=== PATIENT | male | born 1965 | race Caucasian/White ===

== ENCOUNTER 2019-12-14 13:46 | Observation (INO) | payer BC, OTHER ==
[2019-12-14 15:02] LABS: Absolute Lymphocytes (CBC) 2.1 K/uL (0.7-4.9); Basophils % 0.8 % (0-1.3); Hematocrit 46.7 % (39.6-49.0); Lymphocytes % 26.9 % (15.3-44.8); MPV 9.2 fL (7.6-11.3); RBC Red Blood Cell Count 5.35 M/uL (4.33-5.43)
[2019-12-14 15:25] LABS: ALT/SGPT 23 U/L (12-78); AST/SGOT 10 U/L (15-37); Albumin 3.7 g/dL (3.4-5.0); Alkaline Phosphatase 107 U/L (45-117); BUN Blood Urea Nitrogen 18 mg/dL (7-18); Bicarbonate 27 mmol/L (21-32); Bilirubin Direct < 0.1 mg/dL (0-0.2); Bilirubin Total 0.4 mg/dL (0.2-1.0); Glucose Level 257 mg/dL (74-106); Magnesium 2.3 mg/dL (1.8-2.4); NT PRO-BNP 45 pg/mL (<125); Potassium 4.3 mmol/L (3.5-5.1); Protein, Total 8.1 g/dL (6.4-8.2); Sodium Level 137 mmol/L (136-145); Troponin (Emerg Dept Use Only) < 0.02 ng/mL (0.0-0.045)
[2019-12-14 15:28] LABS: Protime INR 0.97
[2019-12-14] MEDS ORDERED: NA CHLORIDE 0.9% 1,000 ML ONE ×2 (15:33→16:53)
--- NOTE | 2019-12-14 15:44 | RAD REPORT ---
EXAM DESCRIPTION: RAD - Chest Single View - 12/14/2019 3:19 pm CLINICAL HISTORY: SOB COMPARISON: None TECHNIQUE: AP portable chest image was obtained 12/14/2019 3:19 pm . FINDINGS: No focal mass or consolidation. Interstitial pattern is prominent with the baseline for th e patient unknown. Heart and vasculature are normal. No measurable pleural effusion and no pneumothor ax. No acute bony abnormality seen. No acute aortic findings suspected. IMPRESSION: No focal mass or consolidation. No significant failure or volume overload. Mild prominence of the interstitial pattern on baseline examination. A mild edema or infiltrate canno t be excluded.
--- NOTE | 2019-12-14 18:23 | ER ---
Nurse's Notes [facility] Name: Alexx Maher Age: 54 yrs Sex: Male : 1965 Arrival Date: 12/14/2019 Time: 13:49 Bed 23 Private MD: Diagnosis: Weakness;Orthostatic hypotension;Diarrhea, unspecified;Shortness of breath;Streptococcal tonsillitis Presentation: 12/13 14:03 Chief complaint: Patient states: SOB and diarrhea that began yesterday. Pt states aa5 "about 30 minutes ago I just started seeing stars and I fell into the tub". Pt denies head injury, denies LOC. Pt states "I landed on my right shoulder". Pt states "my friend was positive for COVID-19 and I've been around him". 14:03 Onset of symptoms was November 2019. aa5 14:03 Acuity: VISHAL 3 aa5 14:03 Method Of Arrival: Ambulatory aa5 14:03 Coronavirus screen: Patient reports a cough. Patient reports shortness of breath or aa5 difficulty breathing. Patient denies measured and/or subjective temperature greater than 100.4F prior to today's visit. Patient denies travel on a cruise ship or to a country the [facility] currently lists as an affected area. Patient reports contact with known and/or suspected case of COVID-19. Patient instructed to continue to wear a mask when interacting with others. Patient moved to private room, placed in contact and droplet isolation with eye protection until further assessment. Ebola Screen: Patient negative for fever greater than or equal to 101.5 degrees Fahrenheit, and additional compatible Ebola Virus Disease symptoms. Initial Sepsis Screen: Does the patient meet any 2 criteria? No. Patient's initial sepsis screen is negative. Does the patient have a suspected source of infection? No. Patient's initial sepsis screen is negative. Risk Assessment: Do you want to hurt yourself or someone else? Patient reports no desire to harm self or others. Triage Assessment: 14:03 General: Appears in no apparent distress. comfortable, Behavior is calm, cooperative. ls4 Pain: Complains of pain in anterior aspect of right shoulder and posterior aspect of right shoulder Pain currently is 5 out of 10 on a pain scale. Quality of pain is described as aching. 14:03 Respiratory: Reports shortness of breath on exertion cough that is occasional, allergy ls4 like Respiratory effort is even, unlabored, Respiratory pattern is regular, Breath sounds are clear bilaterally. Onset: The symptoms/episode began/occurred at an unknown time. the patient has mild shortness of breath. GI: No deficits noted. No signs and/or symptoms were reported involving the gastrointestinal system. : No deficits noted. No signs and/or symptoms were reported regarding the genitourinary system. Derm: No deficits noted. No signs and/or symptoms reported regarding the dermatologic system. Skin is pink, warm \\T\\ dry. Historical: - Allergies: 14:03 PENICILLINS; aa5 - PMHx: 14:03 Diabetes - NIDDM; aa5 - PSHx: 14:03 Head sx (from trauma as a child); Back (spider bite); aa5 - Immunization history:: Adult Immunizations up to date. - Social history:: Smoking status: unknown. Screenin:25 Abuse screen: Denies threats or abuse. Denies injuries from another. Nutritional ls4 screening: No deficits noted. Tuberculosis screening: No symptoms or risk factors identified. Fall Risk None identified. Assessment: 14:15 General: Appears in no apparent distress. comfortable, Behavior is calm, cooperative. ls4 Cardiovascular: Rhythm is regular. 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 Gait is steady, Speech is normal, Facial symmetry appears normal, Pupils are PERRLA. Respiratory: Airway is patent Respiratory effort is even, unlabored, Respiratory pattern is regular. Derm: Skin is pink, warm \\T\\ dry. 15:30 Reassessment: Patient appears in no apparent distress at this time. Patient and/or ls4 family updated on plan of care and expected duration. Pain level reassessed. Patient is alert, oriented x 3, equal unlabored respirations, skin warm/dry/pink. 16:30 Reassessment: Patient appears in no apparent distress at this time. Patient and/or ls4 family updated on plan of care and expected duration. Pain level reassessed. Patient is alert, oriented x 3, equal unlabored respirations, skin warm/dry/pink. 17:30 Reassessment: Patient appears in no apparent distress at this time. Patient and/or ls4 family updated on plan of care and expected duration. Pain level reassessed. Patient is alert, oriented x 3, equal unlabored respirations, skin warm/dry/pink. 18:30 Reassessment: Patient appears in no apparent distress at this time. Patient and/or ls4 family updated on plan of care and expected duration. Pain level reassessed. Patient is alert, oriented x 3, equal unlabored respirations, skin warm/dry/pink. 19:30 Reassessment: Patient appears in no apparent distress at this time. Patient and/or ls4 family updated on plan of care and expected duration. Pain level reassessed. Patient is alert, oriented x 3, equal unlabored respirations, skin warm/dry/pink. 20:30 Reassessment: Patient appears in no apparent distress at this time. Patient and/or ls4 family updated on plan of care and expected duration. Pain level reassessed. Patient is alert, oriented x 3, equal unlabored respirations, skin warm/dry/pink. 21:30 Reassessment: Patient appears in no apparent distress at this time. Patient and/or ls4 family updated on plan of care and expected duration. Pain level reassessed. Patient is alert, oriented x 3, equal unlabored respirations, skin warm/dry/pink. 22:30 Reassessment: Patient appears in no apparent distress at this time. Patient and/or ls4 family updated on plan of care and expected duration. Pain level reassessed. Patient is alert, oriented x 3, equal unlabored respirations, skin warm/dry/pink. Vital Signs: 14:03 BP 135 / 84; Pulse 87; Resp 18 S; Temp 99.1(O); Pulse Ox 100% on R/A; Weight 107.95 kg aa5 (R); Height 6 ft. 2 in. (187.96 cm) (R); Pain 7/10; 16:35 BP 135 / 91 Supine; Pulse 82; aa5 16:37 BP 118 / 82 Sitting; Pulse 87; aa5 16:39 BP 96 / 64 Standing; Pulse 91; aa5 18:52 BP 158 / 99 Supine; Pulse 86; Resp 16; Pulse Ox 100% on R/A; ls4 18:55 BP 106 / 58; Pulse 116; ls4 14:03 Body Mass Index 30.56 (107.95 kg, 187.96 cm) aa5 16:39 Pt c/o dizziness while standing, Dr. Ramey notified of orthostatics. aa5 ED Course: 13:49 Patient arrived in ED. ag5 14:03 Arm band placed on. aa5 14:14 Triage completed. aa5 14:16 Quique Ramey MD is Attending Physician. kdr 14:25 Saadia Moody, RN is Primary Nurse. ls4 14:25 No provider procedures requiring assistance completed. EKG done, by ED staff, reviewed ls4 by Quique Ramey MD. Patient maintains SpO2 saturation greater than 95% on room air. 15:19 XRAY Chest (1 view) In Process Unspecified. EDMS 15:30 Inserted saline lock: 18 gauge in right forearm, using aseptic technique. Inserted by jeremy Zee RN. 18:21 Johny Avila MD is Hospitalizing Provider. kdr 22:54 intact. ls4 Administered Medications: 15:30 Drug: NS 0.9% 1000 ml Route: IV; Rate: 1 bolus; Site: right forearm; aa5 16:30 Follow up: IV Status: Completed infusion; IV Intake: 1000ml ls4 16:35 Follow up: IV Status: Completed infusion; IV Intake: 1000ml aa5 16:45 Drug: NS 0.9% 1000 ml Route: IV; Rate: 1 bolus; Site: right forearm; aa5 17:30 Follow up: IV Status: Completed infusion; IV Intake: 1000ml ls4 Intake: 16:30 IV: 1000ml; Total: 1000ml. ls4 17:30 IV: 1000ml; Total: 2000ml. ls4 Outcome: 18:22 Decision to Hospitalize by Provider. kdr 22:54 Patient left the ED. sg 22:54 Admitted to ICU accompanied by nurse, via wheelchair, on monitor, with chart, Report ls4 called to Casandra GARIBAY 22:54 Condition: stable 22:54 Instructed on the need for admit. Signatures: Dispatcher [employer] EDMS Zac Ibrahim RN RN sg Rittger, Kevin, MD MD kdr Calderon, Audri, RN RN aa5 Stewart, Lisa, LANI RN mark4 Ion Sigala 5 Corrections: (The following items were deleted from the chart) 16:46 15:30 NS 0.9% 1000 ml IV at 1 bolus in right antecubital aa5 aa5 17:06 15:15 Inserted saline lock: 18 gauge in right forearm, using aseptic technique. aa5 aa5 21:38 21:32 Respiratory: Airway ls4 ls4 12/14 00:22 12/13 16:35 IV Status: Completed infusion; IV Intake: 1000ml aa5 ls4
--- NOTE | 2019-12-14 18:23 | EDPHYS ---
Physician Documentation [facility] Name: Alexx Maher Age: 54 yrs Sex: Male : 1965 Arrival Date: 12/14/2019 Time: 13:49 Bed 23 Private MD: ED Physician Quique Ramey HPI: 12/13 16:49 This 54 yrs old Male presents to ER via Ambulatory with complaints of kdr Shortness Of Breath, Diarrhea, Dizziness. 16:49 The patient has shortness of breath at rest, with light activity. Onset: The kdr symptoms/episode began/occurred gradually, yesterday. Duration: The symptoms are continuous, and are steadily getting worse. The patient's shortness of breath is aggravated by coughing, exertion, light activity. Associated signs and symptoms: Pertinent positives: diaphoresis, dizziness, Diarrhea, Pertinent negatives: fever, hemoptysis, nausea, numbness in extremities, visual changes, vomiting. Severity of symptoms: At their worst the symptoms were mild moderate just prior to arrival, incapacitating in the emergency department the symptoms have improved markedly. The patient has not experienced similar symptoms in the past. The patient has not recently seen a physician. The patient has had recent close exposure to COVID and since yesterday, has had diarrhea. Today, he was standing up in the bathroom and became lightheaded and fell into the tub on his right shoulder. HE did not pass out and was able to get out of the tub and to the ED. States that he just doesn't feel right. Historical: - Allergies: 14:03 PENICILLINS; aa5 - PMHx: 14:03 Diabetes - NIDDM; aa5 - PSHx: 14:03 Head sx (from trauma as a child); Back (spider bite); aa5 - Immunization history:: Adult Immunizations up to date. - Social history:: Smoking status: unknown. ROS: 17:29 Constitutional: Negative for fever, chills, and weight loss, Eyes: Negative for injury, kdr pain, redness, and discharge, ENT: Negative for injury, pain, and discharge, Neck: Negative for injury, pain, and swelling, Cardiovascular: Negative for chest pain, palpitations, and edema, Back: Negative for injury and pain, : Negative for injury, bleeding, discharge, and swelling, MS/Extremity: Negative for injury and deformity, Skin: Negative for injury, rash, and discoloration, Psych: Negative for depression, anxiety, suicide ideation, homicidal ideation, and hallucinations, Allergy/Immunology: Negative for hives, rash, and allergies, Endocrine: Negative for neck swelling, polydipsia, polyuria, polyphagia, and marked weight changes, Hematologic/Lymphatic: Negative for swollen nodes, abnormal bleeding, and unusual bruising. 17:29 Respiratory: Positive for dyspnea on exertion, shortness of breath, at rest. Negative for hemoptysis, orthopnea, pleurisy. 17:29 Abdomen/GI: Positive for nausea, diarrhea, abdominal cramps, Negative for constipation, abdominal distension, black/tarry stool, rectal pain, rectal bleeding, bowel incontinence. Exam: 17:29 Constitutional: This is a well developed, well nourished patient who is awake, alert, kdr and in no acute distress. Head/Face: Normocephalic, atraumatic. Eyes: Pupils equal round and reactive to light, extra-ocular motions intact. Lids and lashes normal. Conjunctiva and sclera are non-icteric and not injected. Cornea within normal limits. Periorbital areas with no swelling, redness, or edema. Neck: Trachea midline, no thyromegaly or masses palpated, and no cervical lymphadenopathy. Supple, full range of motion without nuchal rigidity, or vertebral point tenderness. No Meningismus. Chest/axilla: Normal chest wall appearance and motion. Nontender with no deformity. No lesions are appreciated. Cardiovascular: Regular rate and rhythm with a normal S1 and S2. No gallops, murmurs, or rubs. Normal PMI, no JVD. No pulse deficits. Respiratory: Lungs have equal breath sounds bilaterally, clear to auscultation and percussion. No rales, rhonchi or wheezes noted. No increased work of breathing, no retractions or nasal flaring. Abdomen/GI: Soft, non-tender, with normal bowel sounds. No distension or tympany. No guarding or rebound. No evidence of tenderness throughout. Back: No spinal tenderness. No costovertebral tenderness. Full range of motion. Skin: Warm, dry with normal turgor. Normal color with no rashes, no lesions, and no evidence of cellulitis. MS/ Extremity: Pulses equal, no cyanosis. Neurovascular intact. Full, normal range of motion. Neuro: Awake and alert, GCS 15, oriented to person, place, time, and situation. Cranial nerves II-XII grossly intact. Motor strength 5/5 in all extremities. Sensory grossly intact. Cerebellar exam normal. Normal gait. Psych: Awake, alert, with orientation to person, place and time. Behavior, mood, and affect are within normal limits. 17:29 Abdomen/GI: Inspection: obese 17:56 ECG was reviewed by the Attending Physician. kdr Vital Signs: 14:03 BP 135 / 84; Pulse 87; Resp 18 S; Temp 99.1(O); Pulse Ox 100% on R/A; Weight 107.95 kg aa5 (R); Height 6 ft. 2 in. (187.96 cm) (R); Pain 7/10; 16:35 BP 135 / 91 Supine; Pulse 82; aa5 16:37 BP 118 / 82 Sitting; Pulse 87; aa5 16:39 BP 96 / 64 Standing; Pulse 91; aa5 18:52 BP 158 / 99 Supine; Pulse 86; Resp 16; Pulse Ox 100% on R/A; ls4 18:55 BP 106 / 58; Pulse 116; ls4 14:03 Body Mass Index 30.56 (107.95 kg, 187.96 cm) aa5 16:39 Pt c/o dizziness while standing, Dr. Ramey notified of orthostatics. aa5 MDM: 17:29 Data reviewed: vital signs, nurses notes, lab test result(s), radiologic studies. kdr Counseling: I had a detailed discussion with the patient and/or guardian regarding: the historical points, exam findings, and any diagnostic results supporting the discharge/admit diagnosis, lab results, radiology results. 18:22 Patient medically screened. kdr 12/13 14:29 Order name: Basic Metabolic Panel; Complete Time: 16:26 ls4 12/13 14:29 Order name: CBC with Diff; Complete Time: 16:26 ls4 12/13 14:29 Order name: LFT's; Complete Time: 16:26 ls4 12/13 14:29 Order name: Magnesium; Complete Time: 16:26 ls4 12/13 14:29 Order name: NT PRO-BNP; Complete Time: 16:26 ls4 12/13 14:29 Order name: PT-INR; Complete Time: 16:26 ls4 12/13 14:29 Order name: Troponin (emerg Dept Use Only); Complete Time: 16:26 [facility] 12/13 15:19 Order name: COVID-19 [facility] 12/13 15:19 Order name: Flu; Complete Time: 18:23 [facility] 12/13 15:19 Order name: Strep; Complete Time: 18:23 [facility] 12/13 19:05 Order name: Lactate [facility] 12/13 19:05 Order name: CKMB Creatine Kinase MB [facility] 12/13 19:05 Order name: CKMB Creatine Kinase MB [facility] 12/13 19:05 Order name: CKMB Creatine Kinase MB [facility] 12/13 14:29 Order name: XRAY Chest (1 view); Complete Time: 16:26 [facility] 12/13 19:05 Order name: CKMB Creatine Kinase MB [facility] 12/13 19:05 Order name: Comprehensive Metabolic Panel [facility] 12/13 19:05 Order name: Comprehensive Metabolic Panel [facility] 12/13 19:05 Order name: Lipid Profile [facility] 12/13 19:05 Order name: Lipid Profile [facility] 12/13 19:05 Order name: Troponin I [facility] 12/13 19:05 Order name: Troponin I [facility] 12/13 19:05 Order name: Troponin I [facility] 12/13 19:05 Order name: Troponin I [facility] 12/13 19:07 Order name: C-Reactive Protein [facility] 12/13 19:07 Order name: D-Dimer [facility] 12/13 19:07 Order name: Lactate [facility] 12/13 19:07 Order name: NT PRO-BNP [facility] 12/13 14:29 Order name: EKG; Complete Time: 14:29 [facility] 12/13 14:29 Order name: Cardiac monitoring; Complete Time: 00:23 [facility] 12/13 14:29 Order name: EKG - Nurse/Tech; Complete Time: 00:23 [facility] 12/13 14:29 Order name: IV Saline Lock; Complete Time: 00:23 [facility] 12/13 14:29 Order name: Labs collected and sent; Complete Time: 00:23 [facility] 12/13 14:29 Order name: O2 Per Protocol; Complete Time: 00:23 [facility] 12/13 14:29 Order name: O2 Sat Monitoring; Complete Time: 00:23 [facility] 12/13 15:19 Order name: Droplet/Contact Precautions; Complete Time: 17:29 kdr 12/13 15:19 Order name: Orthostatic Blood Pressure: Post Fluid bolus; Complete Time: 16:40 kdr 12/13 19:06 Order name: Consistent Carb (ADA) [facility] EC:56 Rate is 80 beats/min. Rhythm is regular, Normal Sinus Rhythm with No ectopy. QRS Crivitz kdr is Normal. MS interval is normal. QRS interval is normal. QT interval is normal. No Q waves. Clinical impression: Normal ECG. Administered Medications: 15:30 Drug: NS 0.9% 1000 ml Route: IV; Rate: 1 bolus; Site: right forearm; aa5 16:30 Follow up: IV Status: Completed infusion; IV Intake: 1000ml ls4 16:35 Follow up: IV Status: Completed infusion; IV Intake: 1000ml aa5 16:45 Drug: NS 0.9% 1000 ml Route: IV; Rate: 1 bolus; Site: right forearm; aa5 17:30 Follow up: IV Status: Completed infusion; IV Intake: 1000ml ls4 Disposition: 12/14/19 18:22 Hospitalization ordered by Johny Avila for Observation. Preliminary diagnosis are Weakness, Orthostatic hypotension, Diarrhea, unspecified, Shortness of breath, Streptococcal tonsillitis. - Bed requested for Telemetry/MedSurg (observation). - Status is Observation. sg - Condition is Stable. - Problem is new. - Symptoms have improved. Signatures: Dispatcher [employer] EDIN Zac Ibrahim RN RN sg Rittger, Kevin, MD MD [facility] Valerie Titus RN RN aa5 Neetu Lundberg RN RN Saadia Moody RN RN ls4 Corrections: (The following items were deleted from the chart) 18:22 18:22 Hospitalization Ordered by Johny Avila MD for Observation. Preliminary kdr diagnosis is Weakness; Orthostatic hypotension; Diarrhea, unspecified. Bed requested for Telemetry/MedSurg (observation). Status is Observation. Condition is Stable. Problem is new. Symptoms have improved. kdr 18:25 18:22 12/14/2019 18:22 Hospitalization Ordered by Johny Avila MD for Observation. kdr Preliminary diagnosis is Weakness; Orthostatic hypotension; Diarrhea, unspecified; Shortness of breath. Bed requested for Telemetry/MedSurg (observation). Status is Observation. Condition is Stable. Problem is new. Symptoms have improved. kdr 19:55 18:25 12/14/2019 18:22 Hospitalization Ordered by Johny Avila MD for Observation. cg Preliminary diagnosis is Weakness; Orthostatic hypotension; Diarrhea, unspecified; Shortness of breath; Streptococcal tonsillitis. Bed requested for Telemetry/MedSurg (observation). Status is Observation. Condition is Stable. Problem is new. Symptoms have improved. kdr 22:54 19:55 12/14/2019 18:22 Hospitalization Ordered by Johny Avila MD for Observation. sg Preliminary diagnosis is Weakness; Orthostatic hypotension; Diarrhea, unspecified; Shortness of breath; Streptococcal tonsillitis. Bed requested for Telemetry/MedSurg (observation). Status is Observation. Condition is Stable. Problem is new. Symptoms have improved. cg
[2019-12-14] MEDS ORDERED: ACETAMINOPHEN 500 MG TAB PO PRN (19:02)
[2019-12-14] MEDS ORDERED: ONDANSETRON 4 MG/2 ML VIAL IV PRN (19:02)
[2019-12-14] MEDS ORDERED: HYDRALAZINE HCL 20 MG/ML VIAL IV PRN (19:05)
--- NOTE | 2019-12-14 19:06 | P.HP ---
Certification for Inpatient Patient admitted to: Observation With expected LOS: <2 Midnights Practitioner: I am a practitioner with admitting privileges, knowledge of patient current condition, hospital course, and medical plan of care. Services: Services provided to patient in accordance with Admission requirements found in Title 42 Section 412.3 of the Code of Federal Regulations Patient History Date of Service: 12/15/19 Reason for admission: Dizziness History of Present Illness: 54 yrs old Male with past medical history of hypertension , DM , hyperlipidemia presents with complaints of Shortness Of Breath, Diarrhea, Dizziness. The patient has shortness of breath at rest, with light activity . The patient's shortness of breath is aggravated by coughing, exertion, light activity. The patient has had recent close exposure to COVID and since yesterday, has had diarrhea. Today, he was standing up in the bathroom and became lightheaded and fell into the tub on his right shoulder. He denies any Loss of consciousness He was assessed in the ER and was found to have orthostatics hypotension and was admitted for further management for IV hydration and further workup Allergies Penicillins Adverse Reaction (Verified 12/15/19 00:08) Anaphylaxis Home Medications: Azithromycin Tab [Zithromax*] 250 mg PO DAILY #4 tab 12/15/19 Fludrocortisone [Florinef *] 0.1 mg PO DAILY #10 tab 12/15/19 - Past Medical/Surgical History Past Medical History: Reviewed- Non-Contributory -: DM Past Surgical History: Reviewed- Non-Contributory - Family History Family History: Reviewed- Non-Contributory - Family History Father Notes: brain aneurysm - Social History Smoking Status: Never smoker Review of Systems 10-point ROS is otherwise unremarkable Physical Examination - Vital Signs Temperature: 99.1 F Blood Pressure: 136/84 Pulse: 87 Respirations: 18 - Physical Exam General: Alert, In no apparent distress, Obese HEENT: Atraumatic, Normocephalic Neck: Supple Respiratory: Clear to auscultation bilaterally Cardiovascular: Normal pulses, Regular rate/rhythm Capillary refill: <2 Seconds Gastrointestinal: Soft and benign, W/out hepatosplenomegaly Musculoskeletal: No clubbing, No swelling Integumentary: No rashes, No tenderness/swelling Neurological: Normal speech, Normal strength at 5/5 x4 extr Lymphatics: No axilla or inguinal lymphadenopathy - Studies Laboratory Data (last 24 hrs) 12/14/19 14:51: PT 11.5, INR 0.97 12/14/19 14:51: WBC 7.6, Hgb 15.8, Hct 46.7, Plt Count 252 12/14/19 14:51: Sodium 137, Potassium 4.3, BUN 18, Creatinine 1.18, Glucose 257 H, Magnesium 2.3, Total Bilirubin 0.4, AST 10 L, ALT 23, Alkaline Phosphatase 107 Microbiology Data (last 24 hrs): 12/14/19 15:50 Nasopharnyx Coronavirus COVID-19 PCR - Final 12/14/19 15:58 Throat Group A Streptococcus Rapid Screen - Final 12/14/19 15:58 Nasopharnyx Influenza Type A Antigen Screen - Final 12/14/19 15:58 Nasopharnyx Influenza Type B Antigen Screen - Final Assessment and Plan - Problems (Diagnosis) (1) Strep pharyngitis Current Visit: Yes Status: Acute (2) Orthostatic dizziness Current Visit: Yes Status: Acute - Plan Strep A pharyngitis Orthostatic hypotension Diabetes PTSD Anxiety To rule out covid 19 Plan Monitor closely under telemetry Aggressive hydration Monitor orthostatics signs Will get a covid 19 test Insulin sliding scale Continue home medications and titrate as needed GI/DVT prophylaxis - Advance Directives Does patient have a Living Will: No Does patient have a Durable POA for Healthcare: No Time Spent Managing Pts Care (In Minutes): 42
[2019-12-14] MEDS: NA CHLORIDE 0.9% 1,000 ML IV SCH (20:00)
[2019-12-14] MEDS: INSULIN -REGULAR HUMAN 50 UNIT/0.5 ML ML SQ SCH (21:00)
[2019-12-14 21:51] LABS: C-Reactive Protein 6.47 mg/L (<3.00); CKMB Creatine Kinase MB 2.1 ng/mL (0.3-3.6); NT PRO-BNP 38 pg/mL (<125); Troponin I < 0.02 ng/mL (0.0-0.045)
[2019-12-15] MEDS: NA CHLORIDE 0.9% 1,000 ML IV SCH ×4 (00:10→16:00)
[2019-12-15 03:56] LABS: Absolute Lymphocytes (CBC) 3.5 K/uL (0.7-4.9); Basophils % 0.8 % (0-1.3); Hematocrit 42.3 % (39.6-49.0); Lymphocytes % 36.4 % (15.3-44.8); MPV 8.9 fL (7.6-11.3); RBC Red Blood Cell Count 4.85 M/uL (4.33-5.43)
[2019-12-15 04:06] LABS: Bilirubin Total 0.4 mg/dL (0.2-1.0); CKMB Creatine Kinase MB 1.9 ng/mL (0.3-3.6); Troponin I < 0.02 ng/mL (0.0-0.045)
[2019-12-15 04:07] LABS: Albumin 3.1 g/dL (3.4-5.0); Protein, Total 6.7 g/dL (6.4-8.2)
[2019-12-15 04:31] VITALS: BMI 30.5
[2019-12-15 05:16] LABS: Urine Appearance CLEAR; Urine Bilirubin NEGATIVE (NEG); Urine Blood NEGATIVE (NEG); Urine Color YELLOW; Urine Glucose 3+ (NEG); Urine Protein NEGATIVE (NEG); Urine Specific Gravity >=1.030 (1.005-1.030); Urine pH 6.5 (5.0-7.0)
[2019-12-15 05:28] LABS: Urine Microscopic Reflex NO UMIC
--- NOTE | 2019-12-15 07:33 | EKG ---
Test Date: 2019-12-14 Test Time: 14:20:45 [facility] Chaplain: RICCO MEASUREMENT RESULTS: Intervals: Rate: 80 IL: 172 QRSD: 78 QT: 344 QTc: 396 [place]: P: 41 [place]: 172 QRS: 4 T: 31 INTERPRETIVE STATEMENTS: Normal sinus rhythm Normal ECG Compared to ECG 03/16/2006 22:47:57 T-wave abnormality no longer present Electronically Signed On 12-15-19 07:32:24 CDT by Chava Marrufo
[2019-12-15] MEDS: INSULIN -REGULAR HUMAN 50 UNIT/0.5 ML ML SQ SCH ×3 (07:46→17:12)
[2019-12-15] MEDS ORDERED: ENOXAPARIN 40 MG/0.4 ML SQ SCH (09:00)
--- NOTE | 2019-12-15 10:52 | P.DS ---
Admission Date: 12/14/19 Discharge Date: 12/15/19 Disposition: ROUTINE DISCHARGE Discharge Condition: GOOD Brief History of Present Illness: 54 yrs old Male with past medical history of hypertension , DM , hyperlipidemia presents with complaints of Shortness Of Breath, Diarrhea, Dizziness. The patient has shortness of breath at rest, with light activity . The patient's shortness of breath is aggravated by coughing, exertion, light activity. The patient has had recent close exposure to COVID and since yesterday, has had diarrhea. Today, he was standing up in the bathroom and became lightheaded and fell into the tub on his right shoulder. He denies any Loss of consciousness He was assessed in the ER and was found to have orthostatics hypotension and was admitted for further management for IV hydration and further workup Hospital Course: Strep A pharyngitis Orthostatic hypotension Diabetes PTSD Anxiety To rule out covid 19 Patient was admitted and was monitored closely. Monitored under telemetry. Started on aggressive hydration and monitor orthostatics vital signs patient had a covid 19 test and was negative. Rapid strep came back positive and was started on azithromycin. Patient also was continues to have dizziness and was started on fludrocortisone. he underwent a extensive workup with CT of the head and carotid Doppler along with an echocardiogram. Patient is clinically better and is being discharged home today in a stable condition with advice to follow up with PCP in 1 week and also with Cardiology in 1-2 weeks Vital Signs/Physical Exam: Temp Pulse Resp BP Pulse Ox 97.6 F 75 12 126/80 95 12/15/19 08:00 12/15/19 08:00 12/15/19 08:00 12/15/19 08:00 12/15/19 08:00 General: Alert, In no apparent distress HEENT: Atraumatic, Normocephalic Neck: Supple Respiratory: Clear to auscultation bilaterally, Normal air movement Cardiovascular: Normal pulses, Regular rate/rhythm Capillary refill: <2 Seconds Gastrointestinal: Soft and benign, W/out hepatosplenomegaly Musculoskeletal: No clubbing Integumentary: No rashes Neurological: Normal speech, Normal strength at 5/5 x4 extr Laboratory Data at Discharge: WBC 9.7 K/uL (4.3-10.9) D 12/15/19 03:36 Hgb 14.5 g/dL (13.6-17.9) 12/15/19 03:36 Hct 42.3 % (39.6-49.0) 12/15/19 03:36 Plt Count 216 K/uL (152-406) 12/15/19 03:36 PT 11.5 SECONDS (9.5-12.5) 12/14/19 14:51 INR 0.97 12/14/19 14:51 Sodium 139 mmol/L (136-145) 12/15/19 03:36 Potassium 4.0 mmol/L (3.5-5.1) 12/15/19 03:36 BUN 17 mg/dL (7-18) 12/15/19 03:36 Creatinine 1.11 mg/dL (0.55-1.3) 12/15/19 03:36 Glucose 243 mg/dL (74-106) H 12/15/19 03:36 Magnesium 2.3 mg/dL (1.8-2.4) 12/14/19 14:51 Total Bilirubin 0.4 mg/dL (0.2-1.0) 12/15/19 03:36 AST 16 U/L (15-37) 12/15/19 03:36 ALT 22 U/L (12-78) 12/15/19 03:36 Alkaline Phosphatase 88 U/L (45-117) 12/15/19 03:36 Troponin I < 0.02 ng/mL (0.0-0.045) 12/15/19 03:36 Triglycerides 359 mg/dL (<150) H 12/15/19 03:36 Cholesterol 168 mg/dL (<200) 12/15/19 03:36 HDL Cholesterol 42 mg/dL (40-60) 12/15/19 03:36 Cholesterol/HDL Ratio 4.00 12/15/19 03:36 Home Medications: Azithromycin Tab [Zithromax*] 250 mg PO DAILY #4 tab 12/15/19 Fludrocortisone [Florinef *] 0.1 mg PO DAILY #10 tab 12/15/19 New Medications: Fludrocortisone [Florinef *] 0.1 mg PO DAILY #10 tab Azithromycin Tab [Zithromax*] 250 mg PO DAILY #4 tab Diet: ADA Activity: Ad alex Followup: Chava Marrufo MD [ACTIVE - CAN ADMIT] - 1-2 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
[2019-12-15] MEDS ORDERED: FLUDROCORTISONE 0.1 MG TAB PO SCH (11:32)
[2019-12-15 11:52] LABS: CKMB Creatine Kinase MB 1.6 ng/mL (0.3-3.6); HDL Cholesterol 42 mg/dL (40-60); Troponin I < 0.02 ng/mL (0.0-0.045)
[2019-12-15 12:09] LABS: LDL, Direct 92 mg/dL (100-129)
[2019-12-15] MEDS ORDERED: AZITHROMYCIN 250 MG TAB PO ONE (13:00)
--- NOTE | 2019-12-15 13:20 | RAD REPORT ---
EXAM DESCRIPTION: CT - Head Brain Wo Cont - 12/15/2019 1:08 pm CLINICAL HISTORY: Dizziness Headache, drowsiness COMPARISON: No comparisons TECHNIQUE: All CT scans are performed using dose optimization technique as appropriate and may inclu de automated exposure control or mA/KV adjustment according to patient size. FINDINGS: No intracranial hemorrhage, hydrocephalus or extra-axial fluid collection.Mild brain atrop hy is seen.No areas of brain edema or evidence of midline shift. Mild mucoperiosteal thickening is seen affecting the paranasal sinuses greatest in the anterior ethmo id air cells. Mastoid air cells are clear. The calvarium is intact. IMPRESSION: No acute intracranial abnormality.
--- NOTE | 2019-12-15 13:58 | RAD REPORT ---
EXAM DESCRIPTION: - CP - 12/15/2019 1:22 pm CLINICAL HISTORY: dizziness Headache, drowsiness COMPARISON: <Comparisons> TECHNIQUE: Real-time sonographic evaluation of both carotid systems was performed. Doppler interroga tion was performed with waveform tracing bilaterally. FINDINGS: Normal high resistance waveforms are noted in both external carotid arteries. The common c arotid arteries and internal carotid arteries show normal low resistance waveforms. No significant plaque formation is seen. Peak systolic and end diastolic velocity values and the ICA/ CCA ratios are in the non-hemodynamically significant range. Antegrade flow seen in both vertebral arteries. IMPRESSION: No significant atherosclerotic changes noted. No evidence of a hemodynamically significant stenosis.
[2019-12-15 17:04] VITALS: TEMP 96.4
[2019-12-15 17:52] VITALS: O2SAT 97
[2019-12-15 18:45] VITALS: BP 136/86
[2019-12-16] MEDS ORDERED: AZITHROMYCIN 250 MG TAB PO SCH (09:00)
--- NOTE | 2019-12-16 11:39 | ECHO ---
HEIGHT: 6 ft 2 in WEIGHT: 238 lb 0 oz DATE OF STUDY: 12/15/[address]: Mango Avila DO 2-DIMENSIONAL: YES M.MODE: YES DOPPLER: YES COLOR FLOW: YES TDS: YES PORTABLE: NO DEFINITY: NO BUBBLE STUDY: NO DIAGNOSIS: EXERTIONAL DYSPNEA CARDIAC HISTORY: CATHERIZATION: NO SURGERY: NO PROSTHETIC VALVE: NO PACEMAKER: NO MEASUREMENTS (cm) DIASTOLIC (NORMALS) SYSTOLIC (NORMALS) IVSd 1.0 (0.6-1.2) LA Diam 2.6 (1.9-4.0) LVEF 71% LVIDd 2.7 (3.5-5.7) LVIDs 1.7 (2.0-3.5) %FS 39% LVPWd 1.1 (0.6-1.2) Ao Diam 3.0 (2.0-3.7) 2 DIMENSIONAL ASSESSMENT: RIGHT ATRIUM: NORMAL LEFT ATRIUM: NORMAL RIGHT VENTRICLE: NORMAL LEFT VENTRICLE: NORMAL TRICUSPID VALVE: NORMAL MITRAL VALVE: NORMAL PULMONIC VALVE: NORMAL AORTIC VALVE: NORMAL PERICARDIAL EFFUSION: NONE AORTIC ROOT: NORMAL LEFT VENTRICULAR WALL MOTION: NORMAL DOPPLER/COLOR FLOW: NORMAL COMMENTS: NORMAL LEFT VENTRICULAR EJECTION FRACTION 55-60% WITH NORMAL WALL MOTION. NORMAL DIASTOLIC FUNCTION. TECHNOLOGIST: Miles JUAREZ
== END 2019-12-15 18:47 | disposition home or self-care (01) ==
LOC: ER 13:46 → ERHOLD 19:03 → 4TH 21:52
PROVIDERS: ADMIT Family Medicine; ATTEND Family Medicine
DX: J02.0 Streptococcal pharyngitis (principal); R42 Dizziness and giddiness; I95.1 Orthostatic hypotension; F43.10 Post-traumatic stress disorder, unspecified; F41.9 Anxiety disorder, unspecified; R06.02 Shortness of breath; R05 Cough; Z20.828 Contact with and (suspected) exposure to other viral communicable diseases; R19.7 Diarrhea, unspecified; E11.9 Type 2 diabetes mellitus without complications; E78.5 Hyperlipidemia, unspecified; I10 Essential (primary) hypertension
CPT/HCPCS: 96361; 93005; 93306; 85025 ×2; 80048; 36415 ×2; 83721; 83735; 85610; 80061 ×2; 82947 ×3; 85379; 80076; 87081; 83605 ×2; 81003; 84484 ×4; 82553 ×3; 80053; 83880 ×2; 86140 ×2; 87804 ×2; 70450; 71045; 93880; 94760 ×3; 96360; 99285; U0002; J0360; J1650; J7030 ×4; G0378 ×2

== ENCOUNTER 2021-08-08 01:06 | Inpatient (IN) | payer BC, SELFPAY ==
--- OUTSIDE RECORDS SUMMARY | 2021-08-08 01:10 | XMS REPORT | Continuity of Care Document ---
:1965 Author Organization [facility] t Address [address] [place] [address] Care Team Providers Name Role Phone PCP, DOES NOT HAVE A Primary Care Physician Unavailable Batool Brown Attending Clinician Unavailable Provider, Urgent Care Attending Clinician Unavailable Ivory JURADO Attending Clinician IVORY Attending Clinician Unavailable Desiree JENSEN Attending Clinician Unavailable MARY SHARMA Attending Clinician LAYO Attending Clinician Unavailable Tano SMITH Attending Clinician Unavailable Desiree JENSEN Admitting Clinician Unavailable LAYO Admitting Clinician Unavailable Tano SMITH Admitting Clinician Unavailable Payers Payer Name Policy Type Policy Effective Date Expiration Date Sour ce Number MEDICAID NA [place] PENDING [facility] [place] [facility] NA [facility] Problems Condition Condition Condition Status Onset Resolution Last Treating Co mments Source Name Details Category Date Date Treatment Clinician Date Abscess Abscess Problem Active [place] [facility] No known No known Disease Unive rs active active ity of problems problems [facility] Allergies, Adverse Reactions, Alerts Allergy Allergy Status Severity Reaction(s) Onset Inactive Treating Comm ents Source Name Type Date Date Clinician Penicill Propensi Active Shortness of Univers in ty to Breath 08 ity of adverse 00:00: [place] reaction 00 Medical s Branch PENICILL DRUG Active Hives Univers IN INGREDI 108 ity of 00:00: [place] 00 Medical Branch Penicill Allergy Active [place] to 4-13 lle Substanc 00:00: [facility] Penicill DA Active Unknown [facility] ([facility]LI V/SA[facility] Social History Social Habit Start Date Stop Date Quantity Comments Source Sex Assigned At [facility] Medical Branch Exposure to Not sure [facility] SARS-CoV-2 (event) Medica l Branch Tobacco use and 2020-05-27 2020-05-27 Never used [facility] exposure 00:00:00 00:00:00 Medical Branch Smoking Status Start Date Stop Date Source Never smoker [facility] Medications Ordered Filled Start Stop Current Ordering Indication Dosage Frequency Signature Comments Components Source Medication Medication Date Date Medication? Clinician (SIG) Name Name methocarbam Yes [id number] 750mg Take 1 Univers oL 750 mg 1-10 tablet by ity o f tablet 00:00: mouth 4 (four) Medical times Branch daily as needed for Other (muscle spasms). methocarbam Yes [id number] 750mg Take 1 Univers oL 750 mg 1-10 tablet by ity o f tablet 00:00: mouth 4 (four) Medical times [place] daily as needed for Other (muscle spasms). SYNJARDY XR 2019- Yes TAKE 1 Univ ers 25-1,000 mg 1-25 TABLET BY ity of TBph 00:00: MOUTH ONCE DAILY IN Medical THE Branch MORNING WITH A MEAL SYNJARDY XR 2019- Yes TAKE 1 Univ ers 25-1,000 mg 1-25 TABLET BY ity of TBph 00:00: MOUTH ONCE DAILY IN [facility] THE Branch MORNING WITH A MEAL tamsulosin 2019- Yes TAKE 1 Unive rs 0.4 mg 24 1-24 CAPSULE BY ity of hr capsule 00:00: MOUTH [place]CE [place] DAILY ONE Medical HALF HOUR Branch FOLLOWING THE SAME MEAL EACH DAY tamsulosin 2019- Yes TAKE 1 Unive rs 0.4 mg 24 1-24 CAPSULE BY ity of hr capsule 00:00: MOUTH ONCE [place] 00 DAILY ONE Medical HALF HOUR Branch FOLLOWING THE SAME MEAL EACH DAY tadalafiL 2019- Yes TAKE 1 Univer s 20 mg 1-22 TABLET BY ity of tablet 00:00: MOUTH [place] 00 NEEDED 1 Medical HOUR Branch BEFORE SEXUAL ACTIVITY tadalafiL 2019- Yes TAKE 1 Univer s 20 mg 1-22 TABLET BY ity of tablet 00:00: MOUTH 00 NEEDED 1 Medical HOUR Branch BEFORE SEXUAL ACTIVITY pioglitazon 2019- Yes 45mg Take 45 mg Univers e 45 mg 0-15 by mouth ity of tablet 00:00: daily. [address] pioglitazon 2019- Yes 45mg Take 45 mg Univers e 45 mg 0-15 by mouth ity of tablet 00:00: daily. [address] ACETAMINOPH ACETAMINOPH Yes Jack EVERY SIX [place] EN EN 7-15 [place] HOURS lle W/CODEINE W/CODEINE 00:00: NEEDED as Memoria #3 #3 00 needed for l (TYLENOL/CO (TYLENOL/CO PAIN H ospita DEINE #3 DEINE #3 l TAB) 300 TAB) 300 MG/30 MG MG/30 MG TAB TAB Clindamycin Clindamycin Yes Jack 2 EVERY SIX [place] HCl HCl 7-15 [place] HOURS lle (Cleocin) (Cleocin) 00:00: Mem oria 150 MG CAP 150 MG CAP 00 l Hospita l Hydrocodone Hydrocodone 2012-05 Yes MARTA 1 FOUR TIMES [place] -Acetaminop -Acetaminop 0-22 EDUARDO-CHENG A DAY lle hen (NORCO hen (NORCO 00:00: (0900) Memoria 5 MG/325 MG 5 MG/325 MG 00 l TAB) 5 TAB) 5 Hospita MG/325 MG MG/325 MG l TAB TAB IBUPROFEN IBUPROFEN 2012-05 Yes MARTA 800 THREE TIME [place] (MOTRIN 800 (MOTRIN 800 0-22 EDUARDO-CHENG A lle MG TAB) 800 MG TAB) 800 00:00: DAY(; Memoria MG TAB MG TAB 00 21) l Hospita l Cephalexin Cephalexin Yes EVERY [place] (CEPHALEXIN (CEPHALEXIN TWELVE lle 500 MG CAP) 500 MG CAP) HOURS Memoria 500 MG CAP 500 MG CAP l Hospita l Clindamycin Clindamycin Yes 150 EVERY SIX [place] Hcl Hcl HOURS lle (CLEOCIN (CLEOCIN Memoria 150 MG CAP) 150 MG CAP) l 150 MG CAP 150 MG CAP Hos donita l Gabapentin Gabapentin Yes 300 THREE TIME [place] (Neurontin (Neurontin A lle 300MG Cap) 300MG Cap) DAY(09;15; Memoria 300 MG CAP 300 MG CAP 21) l Hospita l INSULIN INSULIN Yes 25 EVERY [place] (HUMAN) (HUMAN) MORNING lle 70/30 70/30 AND Memoria (NovoLIN (NovoLIN EVENING l 70/30 INJ) 70/30 INJ) Hos donita 100 100 l UNITS/ML UNITS/ML INJ INJ Lisinopril Lisinopril Yes EVERY [place] (ZESTRIL (ZESTRIL EVENING lle 20MG) 20 MG 20MG) 20 MG (1700) Memoria TAB TAB l Hospita l METFORMIN METFORMIN Yes TWICE A Hu [place] HCL ER HCL ER DAY (0900; lle (GLUCOPHAGE (GLUCOPHAGE 2100) Memoria XR 1,000 MG XR 1,000 MG l TAB) 1,000 TAB) 1,000 Hos donita MG TAB MG TAB l Vital Signs Vital Name Observation Time Observation Value Comments Source Systolic blood 2020-05-27 20:12:00 130 mm[facility]Hg[facility] 2020-05-27 20:12:00 82 mm[Hg] [facility] Heart rate 2020-05-27 20:10:00 93 /min [facility] Body temperature 2020-05-27 20:10:00 36.78 [facility] Respiratory rate 2020-05-27 20:10:00 18 /min [facility] Body height 2020-05-27 20:10:00 188 cm [facility] Body weight 2020-05-27 20:10:00 121.564 kg [facility] BMI 2020-05-27 20:10:00 34.41 kg/m2 [facility] Oxygen saturation in 2020-05-27 20:10:00 100 /min [facility] Arterial blood by [facility] Pulse oximetry Branch Height 2018-12-02 19:43:00 187.96 CM Weight 2018-12-02 19:43:00 111.58 KG Procedures Procedure Date / Time Performing Clinician Source Performed CBCA W/PLT & AUTO 2018-12-21 00:00:00 [facility] COMPREHENSIVE METABOLIC 2018-12-21 00:00:00 [facility] CARDIAC MARKERS PANEL 2018-12-21 00:00:00 [facility] BNP RAPID 2018-12-21 00:00:00 [facility] WOUND CULTURE 2018-12-21 00:00:00 [facility] CHEST 2 VIEWS 2018-12-21 00:00:[address] [facility] [address] BRAIN W/O CONTRAST 2018-12-21 00:00:00 [facility] ANGIOGRAM HEAD 2018-12-21 00:00:00 [facility] Encounters Start End Encounter Admission Attending Care Care Encounter Source Date/Time Date/Time Type Type Clinicians Facility Department ID 2021-06-[address] [facility] [id number] 12:11:02 Jacquelin [id number] [facility] 2020-05-27 2020-05-27 Urgent Provider, [facility] [id number] Univers 14:04:08 14:41:03 [id number] [facility] [id number] Richie as Professio [id number] Hi dical [address] Office Building One 2020-05-27 2020-05-27 [facility] [id number] Univers 13:40:00 13:40:00 [facility] 2019-05-25 2019-05-25 Emergency X [facility] ERT [id number] Univers 18:33:47 20:18:00 ORALIA [facility] 2018-12-21 2018-12-21 Departed STALIN HERNANDEZ [facility] [id number] [facility] 08:56:00 13:47:00 Emergency TATI 89 lle [facility]ita l Results Test Description Test Time Test Comments Results Result Comments Source HEMOGLOBIN A1c 2021-06-05 11:11:38 Test Item Value Reference Range Interpretation Comme nts HEMOGLOBIN A1c (test code = 12.7 % 4.2-5.6 H CITIZEN [place] [employer] [address]) GUIDELINES FOR HGB A1C: PREDIABETES/INC REASED RISK . . . . . . . 5.7-6.4% DIAGNOSIS OF DIABETES . . . . . . . . . >=6.5% WITH CONF IRMATION OR APPROPRIATE SYMPTOMS N OTE: ASSAY MAY BE AFFECTED BY HEM OGLOBINOPATHIES (SICKLE CELL ANEMIA, S-C DISEASE, OTHERS) OR ARTIFICIALLY LO WERED BY DECREASED RED CELL SURVIV AL (HEMOLYTIC ANEMIAS, BLOOD LOSS, ETC.). CONSIDER ALTERNATE TESTI NG OR LABORATORY CONSULTATION. UNLESS OTHERWISE INDICATED, ALL TESTING PERFORMED [facility] [employer], [employer]. [address] [place] [address] LABORATORY DIR JAVIER: JASMINA GODDARD M.D. CLIA NUMBER [id number] [place]. [id number] PSA, [id number] 04:14:36 Test Item Value Reference Range Interpretation Comments PSA, TOTAL 1.31 NG/ML See_Comment NOTE: Metho dology is Deshawn (test code = Bernard Electroch emiluminescence 2606) Immunoassay tr aceable to WHO reference stand evi 96/760. [Automated mess age] The system which generated this result transmitted ref erence range: <=4.00. The ref erence range was not used to int erpret this result as arina l/abnormal. CBC W/AUTO DIFF WITH [id number] 03:20:55 Test Item Value Reference Range Interpretation Comments WBC (test code = 7.8 K/UL 3.5-11.0 1001) RBC (test code = 5.21 M/UL 4.50-6.10 1002) HEMOGLOBIN (test code 15.1 G/DL 13.5-17.0 = 1003) HEMATOCRIT (test code 45.3 % 40.0-51.0 = 1004) MCV (test code = 86.9 fL 80.0-99.0 1005) MCH (test code = 29.0 PG 25.0-33.0 1006) MCHC (test code = 33.3 G/DL 31.0-36.0 1007) RDW (test code = 12.0 % 11.5-15.0 1038) NEUTROPHILS (test 60.4 % code = 1008) LYMPHOCYTES (test 29.2 % code = 1010) MONOCYTES (test code 6.3 % = 1011) EOSINOPHILS (test 2.9 % code = 1012) BASOPHILS (test code 0.8 % = 1013) IMMATURE GRANYLOCYTES 0.4 % (test code = 1036) NUCLEATED RBCS (test 0.0 /100 See_Comment [Autom ated code = 1065) WBC'S message] The sy stem which generated this result transmitted reference range : 0.0. The refere nce range was not u sed to interpret th is result as normal/abnormal . PLATELET COUNT (test 271 K/UL 130-400 code = 1015) ABSOLUTE NEUTROPHILS 4.71 K/UL 1.50-7.50 (test code = 1066) ABSOLUTE LYMPHOCYTES 2.28 K/UL 1.00-4.00 (test code = 1067) ABSOLUTE MONOCYTES 0.49 K/UL 0.20-1.00 (test code = 1068) ABSOLUTE EOSINOPHILS 0.23 K/UL 0.00-0.50 (test code = 1040) ABSOLUTE BASOPHILS 0.06 K/UL 0.00-0.20 (test code = 1069) ABS IMMATURE 0.03 K/UL 0.00-0.10 GRANULOCYTES (test code = 1020) ABS NUCLEATED RBCS 0.00 K/UL 0.00-0.11 (test code = 02496) COMPREHENSIVE METABOLIC [id number] 03:12:28 Test Item Value Reference Range Interpretation Comments GLUCOSE (test code = 365 MG/DL 70-99 H 2216) BUN (test code = 16 MG/DL 6-20 2207) CREATININE (test 0.90 MG/DL 0.80-1.40 code = 2214) eGFR (2020 CKD-EPI) 101 >60 (test code = 79897) ML/MIN/1.73 CALC BUN/CREAT (test 18 RATIO 6-28 code = 2235) SODIUM (test code = 138 MEQ/L 654-588 7779) POTASSIUM (test code 4.8 MEQ/L 3.5-5.4 = 2227) CHLORIDE (test code 99 MEQ/L 95-107 = 2214) CARBON DIOXIDE (test 26 MEQ/L 19-31 code = 2206) CALCIUM (test code = 9.9 MG/DL 8.5-10.5 2208) PROTEIN, TOTAL (test 7.9 G/DL 6.1-8.3 code = 222) ALBUMIN (test code = 4.5 G/DL 3.5-5.2 2200) CALC GLOBULIN (test 3.4 G/DL 1.9-3.7 code = 2240) CALC A/G RATIO (test 1.3 RATIO 1.0-2.6 code = 2234) BILIRUBIN, TOTAL 0.4 MG/DL See_Comment [Automated message] (test code = 2207) The syste m which generated this result transmit artie reference range : <=1.2. The refe rence range was not u sed to interpret th is result as normal/abnormal . ALKALINE PHOSPHATASE 122 U/L 40-121 H (test code = 2204) AST (test code = 13 U/L 9-50 2217) ALT (test code = 14 U/L 5-50 2218) LIPID [id number] 03:12:28 Test Item Value Reference Range Interpretation Comments CHOLESTEROL (test 233 MG/DL <200 H code = 2210) TRIGLYCERIDES (test 304 MG/DL <150 H code = 2232) HDL CHOLESTEROL (test 45 MG/DL >39 code = 2220) CALC LDL CHOL (test 145 MG/DL <100 H NOTE: C ALCULATED LDL code = 2237) IS BASED ON DONTA-GARCIA METHOD WHICHINCLUDES ADJUSTABLE TRIGLYCERIDE:VL DL CHOLESTEROL RAT IO.THIS FACTOR VARIES B Y MEASURED TRIGLY CERIDE AND NON-HDLCHOL ESTEROL CONCENTRATIONS WITH INCREASED CALCU LATED LDL SEENIN HIGH ER TRIGLYCERIDE OR LOWER NON-HDL SPECIME NS. FOR MOREINFORMATION , SEE CLIENT ANNOUNCE MENT AT [email or web address]-[email or web address] RISK RATIO LDL/HDL 3.22 RATIO <3.55 (test code = 2238) [id number] 03:09:07 Test Item Value Reference Range Interpretation Comments TESTOSTERONE (test code = 2830) 368 NG/DL 300-890 SARS-COV2/RT-PCR ([facility])2019-12-15 10:21:00 Test Item Value Reference Range Interpretation Comments SARS-COV2/RT-PCR (test Negative Not Detected, Negative, code = 6553688) See external report for linked test SARS-COV-[address] [facility] (test code = 6711941) Negative result for this test determines that SARS-CoV-2 RNA was not present in the specimen above the Limit of Detection (LOD). However, Negative results do not preclude SARS-CoV-2 infection and should not be used as the sole basis for treatment or patient management decisions. Negative results mustbe combined with clinical observations, patient history, and epidemiological information. A false negative result may occur if a specimen is improperly collected, transported or handled. A false negative result should be considered if patient's recent exposures or clinical presentation indicate that COVID-19 (SARS-CoV-2) is likely and diagnostic tests for other causes of illness are negative. Re-testing should be considered in cases of suspected false negatives.The limit of detection for this assay is 800 copies/mL.This SARS CoV-2 test is a real-time RT-PCR test intended for the qualitative detection of nucleic acid from SARS-CoV-2 in a nasopharyngeal swab specimen collected from individuals susp ected of COVID-19 by their healthcare provider.This test has not been Food and Drug Administration (FDA) cleared or approved. This is a modified version of an approved Emergency Use Authorization (EUA) and is in the process of review by the FDA. Once authorized by the FDA, the issued EUA will be effective until the declaration that circumstances exist justifying the authorization of the emergency use of in vitro diagnostic tests for detection and/or diagnosis of COVID-19 is terminated under Section 564(b)(2) of the Act or the EUA is revoked under Section 564(g) of the Act.Fact Sheet for Healthcare Providers:https://www.Beaut[employer].Stockpile/sites/default/files/product/documents/Fact_Shee n_KU_Gmpucaper_Clqj_GHTY-UfH-3.pdfFact Sheet for Healthcare Patients:https://www.[employer].Stockpile/sites/default/files/product/ documents/Mxfv_Xxxen_Jmzinnvf_Jpqu_JFFQ-GoE-2.pdfPerforming Laboratory:[facility], [place] [address]Cfuuehx (Fingerstick) 2018-12-21 11:06:00 Test Item Value Reference Range Interpretation Comments Glucose (Fingerstick) (test code = 275 65-99 H 59381-6) [facility] [id number] 10:44:00 Test Item Value Reference Range Interpretation Comments Creatine Kinase MB (test code = 3.31 0.6-6.3 31358-0) [facility] AliceMyoglobin2019-08-06 10:43:00 Test Item Value Reference Range Interpretation Comments Myoglobin (test code = 2639-3) 29 17.4-106.0 [facility] AliceB-Type Natriuretic [id number] 10:40:00 Test Item Value Reference Range Interpretation Comments B-Type Natriuretic Peptide (test code = 27 0-100 88295-8) [facility] AliceTroponin [id number] 10:39:00 Test Item Value Reference Range Interpretation Comments Troponin I (test code = 11217-5) < 0.01 0.00-0.03 Troponin I-Interpretation Reference : <0.03 ng/mL NEGATIVE 0.04 - 0.49 ng/mL EQUIVOCAL =OR > 0.5 ng/mL CONSISTENT WITH ACUTE MYOCARDIAL INJURY 98% of confirmed AMI patients will have at least one valuein a set or serial specimens >0.50 ng/ml. 99% of normals are between 0.0 - 0.10 ng/ml. Serial samples on a patient that are all <0.10 ng/mleffectively rules out AMI. Persistentlyincreased troponin I values that are above theupper limit of normal but below the threshold for AMIindicate mycardial injury but not necessarily an ischemicmechanism of injury. Troponin Important Points 1. Troponin is specific for myocardial injury but not forAMI. Elevated troponin levels above the upper limit ofnormal but below the AMI cutoff may be present in cardiacinjury other then AMI and represent some degree of risk. 2. Elevated troponin levels inconsistent with patienthistory or clinical condition should be considered a sign toinvestigate for other cardiac conditions.3. Serial sampling is critical for accurate diagnosis.[facility] AliceBlood Urea [id number] 10:34:00 Test Item Value Reference Range Interpretation Comments Blood Urea Nitrogen (test code = 15 8-26 3094-0) [facility] AliceCreatinine2019-08-06 10:34:00 Test Item Value Reference Range Interpretation Comments Creatinine (test code = 2160-0) 0.9 0.61-1.24 [facility] AliceEGFR [id number] 10:34:00 Test Item Value Reference Range Interpretation Comments EGFR Note (test code = 19963-6) 118.3 59.3-175.8 eGFR (Estimated Glomerular Filtration Rate) eGFR calculation value obtained using the Quevedo ClinicQuadratic (MCQ) equation. The reportable reference range isrecommended to be greater than 60 ml/min/1.73m. This is anestimation of the patient's GFR and clinical correlation isrecommended. This eGFR calculation does not account for race. This resultmay differ from other equations available. [facility] AliceAlbumin2019-08-06 10:34:00 Test Item Value Reference Range Interpretation Comments Albumin (test code = 1751-7) 4.0 3.5-5.0 [facility] AliceTotal [id number] 10:34:00 Test Item Value Reference Range Interpretation Comments Total Bilirubin (test code = 1975-2) 0.7 0.2-1.2 [facility] AliceAlkaline [id number] 10:34:00 Test Item Value Reference Range Interpretation Comments Alkaline Phosphatase (test code = 83 32-91 6768-6) [facility] [id number] 10:34:00 Test Item Value Reference Range Interpretation Comments Total Protein (test code = 2885-2) 7.7 6.5-8.1 [facility] AliceAlanine Aminotransferase (ALT/SGPT)2018-12-21 10:34:00 Test Item Value Reference Range Interpretation Comments Alanine Aminotransferase (ALT/SGPT) 14 7-55 (test code = 1742-6) [facility] AliceAspartate Amino Transf (AST/SGOT)2018-12-21 10:34:00 Test Item Value Reference Range Interpretation Comments Aspartate Amino Transf (AST/SGOT) (test 15 15-41 code = 1920-8) [facility] AliceGlobulin2019-08-06 10:34:00 Test Item Value Reference Range Interpretation Comments Globulin (test code = 79350-3) 3.7 2.3-3.5 H [facility] AliceAlbumin/Globulin [id number] 10:34:00 Test Item Value Reference Range Interpretation Comments Albumin/Globulin Ratio (test code = 1.1 1.2-2.2 L 1759-0) [facility] AliceCreatine [id number] 10:34:00 Test Item Value Reference Range Interpretation Comments Creatine Kinase (test code = 2157-6) 103 49-397 [facility] AliceWhite Blood [id number] 10:29:00 Test Item Value Reference Range Interpretation Comments White Blood Count (test code = 6690-2) 8.3 4.8-10.8 [facility] AliceRed Blood [id number] 10:29:00 Test Item Value Reference Range Interpretation Comments Red Blood Count (test code = 789-8) 4.99 4.70-6.00 [facility] AliceHemoglobin2019-08-06 10:29:00 Test Item Value Reference Range Interpretation Comments Hemoglobin (test code = 718-7) 15.0 13.5-17.5 [facility] AliceHematocrit2019-08-06 10:29:00 Test Item Value Reference Range Interpretation Comments Hematocrit (test code = 94929-5) 43.0 42.0-52.[address] [facility] Corpuscular [id number] 10:29:00 Test Item Value Reference Range Interpretation Comments Mean Corpuscular Volume (test code = 86.2 80.0-100.0 32344-0) [facility] Corpuscular [id number] 10:29:00 Test Item Value Reference Range Interpretation Comments Mean Corpuscular Hemoglobin (test code 30.0 27.0-31.0 = 785-6) [facility] Corpuscular Hgb Concent [id number] 10:29:00 Test Item Value Reference Range Interpretation Comments Mean Corpuscular Hgb Concent Diff (test 34.8 32.0-36.0 code = 786-4) [facility] AliceRed Cell Distribution [id number] 10:29:00 Test Item Value Reference Range Interpretation Comments Red Cell Distribution Width (test code 12.6 11.5-14.5 = 788-0) [facility] AlicePlatelet [id number] 10:29:00 Test Item Value Reference Range Interpretation Comments Platelet Count (test code = 777-3) 250 130-[address] [facility] Platelet [id number] 10:29:00 Test Item Value Reference Range Interpretation Comments Mean Platelet Volume (test code = 9.1 7.4-10.4 90778-7) [facility] AliceGranulocytes (%)2018-12-21 10:29:00 Test Item Value Reference Range Interpretation Comments Granulocytes (%) (test code = 56177-1) 62.5 50.0-75.0 [facility] HospitalLymphocytes %2018-12-21 10:29:00 Test Item Value Reference Range Interpretation Comments Lymphocytes % (test code = 736-9) 26.3 20.0-40.0 [facility] HospitalMonocytes %2018-12-21 10:29:00 Test Item Value Reference Range Interpretation Comments Monocytes % (test code = 5905-5) 6.4 0.0-15.0 [facility] HospitalEosinophils %2018-12-21 10:29:00 Test Item Value Reference Range Interpretation Comments Eosinophils % (test code = 713-8) 4.1 0.0-10.0 [facility] AliceBasophils %2018-12-21 10:29:00 Test Item Value Reference Range Interpretation Comments Basophils % (test code = 55838-2) 0.8 0.0-2.0 [facility] AliceGranulocytes #2018-12-21 10:29:00 Test Item Value Reference Range Interpretation Comments Granulocytes # (test code = 21227-9) 5.2 1.8-6.4 [facility] AliceLymphocytes #2018-12-21 10:29:00 Test Item Value Reference Range Interpretation Comments Lymphocytes # (test code = 93773-0) 2.2 1.2-3.6 [facility] AliceMonocytes #2018-12-21 10:29:00 Test Item Value Reference Range Interpretation Comments Monocytes # (test code = 742-7) 0.5 0.3-0.9 [facility] AliceEosinophils #2018-12-21 10:29:00 Test Item Value Reference Range Interpretation Comments Eosinophils # (test code = 711-2) 0.3 0.0-0.5 [facility] AliceBasophils #2018-12-21 10:29:00 Test Item Value Reference Range Interpretation Comments Basophils # (test code = 31210-4) 0.1 0.0-0.2 [facility] AliceManual [id number] 10:29:00 Test Item Value Reference Range Interpretation Comments Manual Differential (test code = Manual NO Differential) [facility] [id number] 10:26:00 Test Item Value Reference Range Interpretation Comments Sodium Level (test code = 2951-2) 132 135-144 L [facility] AlicePotassium [id number] 10:26:00 Test Item Value Reference Range Interpretation Comments Potassium Level (test code = 2823-3) 4.1 3.5-5.1 [facility] AliceChloride [id number] 10:26:00 Test Item Value Reference Range Interpretation Comments Chloride Level (test code = 2075-0) 100 101-111 L [facility] D[facility] [id number] 10:26:00 Test Item Value Reference Range Interpretation Comments Carbon Dioxide Level (test code = 23 22-32 8-9) [facility] Alice[facility]ion [id number] 10:26:00 Test Item Value Reference Range Interpretation Comments Anion Gap (test code = 13890-1) 13.1 10-20 [facility] AliceGlucose [id number] 10:26:00 Test Item Value Reference Range Interpretation Comments Glucose Level (test code = 2345-7) 290 65-99 H Prediabetes 100 to 125 mg/dlDiabetes 126 mg/dl or higher Prediabetes refers to individuals with plasma glucose levelsintermediate between those considered normal and thoseconsidered diabetic and is also referred to as impairedglucose tolerance (IGT) or impaired fasting glucose (IFG). [facility] Alice[facility]cium [id number] 10:26:00 Test Item Value Reference Range Interpretation Comments Calcium Level (test code = 93540-7) 9.0 8.9-10.3 [facility] SCROTUM (TESTES)2018-12-02 21:55:12SCROTAL ULTRASOUNDHISTORY: Swelling of scrotumTECHNIQUE: Sonographic evaluation of the scrotum. Color and pulsed wave Dopplerultrasound was used to assess testicular vasculature.COMPARISON: None available.DISCUSSION:RIGHT TESTIS: The right testis measures 4.5 x 3.1 x 2.3 cm. Normalechotexture, without a focal lesion identified.LEFT TESTIS: The left testis measures 4.4 x 3.1 x 2.2 cm. Normal echotexture,without a focal lesion identified. Minimal microlithiasis.VASCULAR: There are symmetric, arterial wave forms detected in both testes.EPIDIDYMIDES:Right: 10 mm, unremarkable.Left: 9 mm, unremark able.SCROTUM: Small bilateral hydroceles.IMPRESSION:1. Incidental minimal left microlithiasis. A followup surveillance ultrasoundin one year may be performed given the controversial association withmalignancy.2. Small bilateral hydroceles.This final report was electronically signed by Dr Huy Irby DO 12/02/2018 9:48PMDictated By: Candie IRBYte: 12/02/2018 21:48URINALYSIS WITH [id number] 21:17:00 Test Item Value Reference Range Interpretation Comments Color (test code = UCOLR) YELLOW Clarity (test code = UCLAR) CLEAR Glucose (test code = UGLUC) >=1000 NEGATIVE A Bilirubin (test code = UBILI) NEGATIVE NEGATIVE N Ketones (test code = UKET) NEGATIVE NEGATIVE N Specific Industry (test code = 1.015 1.005-1.030 A USPGR) Blood (test code = UBLD) NEGATIVE NEGATIVE N PH (test code = UPH) 5.0 4.5-8.0 A Protein (test code = UPROT) NEGATIVE NEGATIVE N Urobilinogen (test code = U UROB) 0.2 >0.2 N Nitrite (test code = UNITR) NEGATIVE NEGATIVE N Leukocyte Esterase (test code = NEGATIVE NEGATIVE N ULEUK) WBC (test code = WBCUR) 0-5 0-5 N RBC (test code = RBCUR) None Seen 0-5 A Epithial Cells (test code = U EPI) 10-20 0-10 A Mucous (test code = UMUC) Trace None Seen A Bacteria (test code = UBACT) Trace None Seen,Trace N CULTURE, [id number] 20:25:00Specimen: BloodCollected: 10/13/2016 18:14 Status: Final Last Updated: 10/18/2016 20:21 Culture Result (Final) (Final) No Growth After 5 DaysCULTURE, ANAEROBE [id number] 20:25:00Specimen: BloodCollected: 10/13/2016 18:14 Status: Final Last Updated: 10/18/2016 20:21 Culture Result (Final) (Final) No Growth After 5 DaysTROPONIN-I [id number] 18:45:00 Test Item Value Reference Range Interpretation Comments Troponin-I (test <0.012 ng/ml 0.000-0.034 N The 99th Pe rcentile URL code = TROP) is 0.034 ng/mL. The Joint Society of Cardiology/[place]mer ican College of Card iology (ESC/ACC) and [facility] Harrie sylvester Standards of [place] boratory Practices (NACB ) recommends that the diagnosis of AM I includes the presence of clinical history suggest leatha of Acute Coronary Syndrome (ACS) and a max imum concentration o f cardiac troponin exceed ing the 99th percentile of a normal referenc e population [upp er reference limit (URL)] on at least one oc casion during the firs t 24 hours after the clini jak event. LACTIC ACID [id number] 18:31:00 Test Item Value Reference Range Interpretation Comments LACTATE (test code = LAC) 1.8 mmol/l 0.7-2.1 [id number] 17:52:00 Test Item Value Reference Range Interpretation Comments CPK (test code = CPK) 152 U/L 30-135 H TROPONIN-I [id number] 17:52:00 Test Item Value Reference Range Interpretation Comments Troponin-I (test <0.012 ng/ml 0.000-0.034 N The 99th Pe rcentile URL code = TROP) is 0.034 ng/mL. The Joint Society of Cardiology/Amer ican College of Card iology (ESC/ACC) and [facility] Circadence Bioche sylvester Standards of [place] boratory Practices (NACB ) recommends that the diagnosis of AM I includes the presence of clinical history suggest leatha of Acute Coronary Syndrome (ACS) and a max imum concentration o f cardiac troponin exceed ing the 99th percentile of a normal referenc e population [upp er reference limit (URL)] on at least one oc casion during the firs t 24 hours after the clini jak event. [id number] 17:42:00 Test Item Value Reference Range Interpretation Comments Glucose (test code 257 mg/dl 75-110 H = GLU) BUN (test code = 16.0 mg/dl 6.0-17.0 BUN) Creatinine (test 0.8 mg/dl 0.4-1.2 code = CREA) Sodium (test code = 141 mmol/l 137-145 NA) Potassium (test 4.4 mmol/l 3.5-5.0 code = K) Chloride (test code 98 mmol/l 98-107 = CL) CO2 (test code = 28 mmol/l 22-30 CO2) Anion Gap (test 15 code = GAP) Calcium (test code 9.6 mg/dl 8.4-10.2 = CALC) T Protein (test 8.4 gm/dl 5.1-8.7 code = TP) Albumin (test code 4.5 gm/dl 3.5-4.6 = ALB) A/G Ratio (test 1.2 % 1.1-2.2 code = AGRAT) AST (SGOT) (test 32 U/L 11-36 code = AST) ALT (SGPT) (test 30 U/L 11-40 code = ALT) Alkaline Phos (test 99 U/L 47-114 code = ALKP) Total Bilirubin 1.2 mg/dl 0.2-1.2 (test code = TBIL) Globulin (test code 3.9 gm/dl 2.3-3.5 H = GLOBU) Calcium, Corrected 9.2 mg/dl 8.4-10.2 Various f ormulas exist (test code = for corrected s avel CALCCORR) calcium results , each yielding differ ent values. This corrected resul t was based on the fo rmula: Corrected Calci um = SerumCalcium + [0.8 * ( 4 - SerumAlbu min)] EGFR if >60 Colombian (test code mL/min/1.73m\ = EGFRAA) S\2 EGFR if Non- >60 Estimate d Glomerular Colombian (test code mL/min/1.73m\ Filtrat ion Rate (eGFR) = EGFRNA) S\2 Reference Inter vals Decision Points for 18 years and older and average body ma ss: >= 60 Does not exc lude kidney disease. 30 - 59 Suggests modera te chronic kidney disease and indicat es the need for furthe r investigation including asses sment of proteinuria and cardiovascular factors. < 30 Usually in dicates a need for refe rral for assessment and management of c hronic kidney failure. CBC WITH AUTO [id number] 17:27:00 Test Item Value Reference Range Interpretation Comments WBC (test code = WBC) 9.3 k/ul 4.8-10.8 RBC (test code = RBC) 5.34 Millions/ul 4.70-6.10 Hemoglobin (test code = HGB) 15.9 gm/dl 14.0-18.0 Hematocrit (test code = HCT) 46.5 % 42.0-50.0 MCV (test code = MCV) 87.1 fL 80.0-94.0 MCH (test code = MCH) 29.8 pg 27.0-31.0 MCHC (test code = MCHC) 34.2 gm/dl 33.0-37.0 RDW (test code = RDWVC) 13.0 % 11.5-14.5 Platelet (test code = PLT) 273 k/ul 130-400 MPV (test code = MPV) 8.3 fL 7.4-10.4 NE% (test code = NE) 59.9 % 42.0-75.0 LY% (test code = LY) 29.2 % 13.0-42.0 MO% (test code = MO) 7.0 % EO% (test code = EO) 3.6 % 1.0-3.0 H BA% (test code = BA) 0.3 % 1.0-3.0 L NRBC, Auto (test code = 0 /100WBC 0-0 NRBC_AUTO)
[2021-08-08] MEDS ORDERED: CEFTRIAXONE 1000 MG/VIAL ONE ×2 (02:03→08:46)
[2021-08-08] MEDS ORDERED: NA CHLORIDE 0.9% 50 ML ONE (02:04)
[2021-08-08] MEDS ORDERED: NA CHLORIDE 0.9% 2,000 ML ONE (02:04)
[2021-08-08 02:20] LABS: Absolute Lymphocytes (CBC) 1.5 K/uL (0.7-4.9); Lymphocytes % 11.2 % (15.3-44.8); MPV 8.6 fL (7.6-11.3); RBC Red Blood Cell Count 4.53 M/uL (4.33-5.43)
[2021-08-08 02:34] LABS: Potassium 3.8 mmol/L (3.5-5.1)
[2021-08-08 02:36] LABS: Troponin High Sensitivity 391.1 pg/mL (<58.9)
[2021-08-08 02:52] LABS: SARS-COV-2 RT PCR NEGATIVE (NEGATIVE)
[2021-08-08] MEDS ORDERED: INSULIN -REGULAR HUMAN 50 UNIT/0.5 ML ML ONE ×4 (03:05→16:48)
[2021-08-08] MEDS ORDERED: AZITHROMYCIN 500 MG INJ IVPB ONE (03:07)
[2021-08-08] MEDS ORDERED: ASPIRIN 81 MG CHEWABLE TABLET ONE (03:07)
[2021-08-08] MEDS ORDERED: ENOXAPARIN 100 MG/ML SYR SQ ONE (03:07)
[2021-08-08] MEDS ORDERED: NA CHLORIDE 0.9% 250 ML ONE (03:08)
[2021-08-08] MEDS ORDERED: FAMOTIDINE 20 MG/2 ML VIAL IV ONE (03:08)
--- NOTE | 2021-08-08 03:31 | EDPHYS ---
Physician Documentation [facility] Name: Alexx Maher Age: 56 yrs Sex: Male : 1965 Arrival Date: 08/08/2021 Time: 01:07 Bed 17 Private MD: ED Physician Daniel Yang HPI: 08/08 03:22 This 56 yrs old Male presents to ER via Wheelchair with complaints of Cough, angel Breathing Difficulty. 03:22 The patient or guardian reports cough, difficulty breathing, flu symptoms, arthralgias, angel low-grade fever, myalgias. Onset: The symptoms/episode began/occurred 3 day(s) ago. Severity of symptoms: At their worst the symptoms were mild, moderate, in the emergency department the symptoms are unchanged. Modifying factors: The symptoms are alleviated by nothing, the symptoms are aggravated by exertion, talking. Associated signs and symptoms: Pertinent positives: nausea, rhinorrhea. The patient has experienced similar episodes in the past, a few times. Historical: - Allergies: : PENICILLINS; lp1 - Home Meds: : Synjardy oral [Active]; Buspirone Oral [Active]; Actos Oral [Active]; lp1 - PMHx: 01:31 Diabetes - NIDDM; PTSD; lp1 - PSHx: :31 Back surgery; lp1 - Immunization history:: Adult Immunizations up to date, Client reports receiving the 2nd dose of the Covid vaccine. - Social history:: Smoking status: Patient denies any tobacco usage or history of. ROS: 03:25 Constitutional: Positive for body aches, chills, fatigue, fever, malaise. angel 03:25 Cardiovascular: Positive for palpitations. 03:25 Respiratory: Positive for cough, dyspnea on exertion, shortness of breath, at rest. 03:25 Abdomen/GI: Positive for abdominal distension. 03:25 MS/extremity: Positive for decreased range of motion, erythema, pain, swelling, tenderness, of the ball of left foot, heel of left foot, right leg and left leg, INFECTED LEFT FOOT. Exam: 03:25 Constitutional: This is a well developed, well nourished patient who is awake, alert, angel and in no acute distress. Head/Face: Normocephalic, atraumatic. Eyes: Pupils equal round and reactive to light, extra-ocular motions intact. Lids and lashes normal. Conjunctiva and sclera are non-icteric and not injected. Cornea within normal limits. Periorbital areas with no swelling, redness, or edema. ENT: Nares patent. No nasal discharge, no septal abnormalities noted. Tympanic membranes are normal and external auditory canals are clear. Oropharynx with no redness, swelling, or masses, exudates, or evidence of obstruction, uvula midline. Mucous membranes moist. Neck: Trachea midline, no thyromegaly or masses palpated, and no cervical lymphadenopathy. Supple, full range of motion without nuchal rigidity, or vertebral point tenderness. No Meningismus. Chest/axilla: Normal chest wall appearance and motion. Nontender with no deformity. No lesions are appreciated. Abdomen/GI: Soft, non-tender, with normal bowel sounds. No distension or tympany. No guarding or rebound. No evidence of tenderness throughout. Back: No spinal tenderness. No costovertebral tenderness. Full range of motion. Male : Normal genitalia with no discharge or lesions. Skin: Warm, dry with normal turgor. Normal color with no rashes, no lesions, and no evidence of cellulitis. Neuro: Awake and alert, GCS 15, oriented to person, place, time, and situation. Cranial nerves II-XII grossly intact. Motor strength 5/5 in all extremities. Sensory grossly intact. Cerebellar exam normal. Normal gait. Psych: Awake, alert, with orientation to person, place and time. Behavior, mood, and affect are within normal limits. 03:25 Cardiovascular: Rate: tachycardic, Rhythm: regular, Pulses: Pulses are 4+ in bilateral radial, brachial, femoral, popliteal, posterior tibial and and dorsalis pedis arteries.. Heart sounds: normal, Edema: 4+ edema to level of left midcalf and right midcalf, JVD: is noted on the right, to 2 cm. 03:25 ECG was reviewed by the Attending Physician. Vital Signs: 01:28 BP 108 / 80; Pulse 125; Resp 26; Temp 99.2(O); Pulse Ox 97% on R/A; Weight 113.4 kg lp1 (R); Height 6 ft. 2 in. (187.96 cm); 01:30 BP 126 / 84 LA Supine (auto/reg); Pulse 124 MON; Resp 24 S; Pulse Ox 96% on R/A; tk1 02:15 BP 122 / 84 RA Supine (auto/reg); Pulse 118 MON; Resp 24 S; Pulse Ox 94% on R/A; tk1 03:00 BP 118 / 84 RA Supine (auto/reg); Pulse 113 MON; Resp 26; Pulse Ox 93% on R/A; tk1 04:00 BP 105 / 79 (auto/); Pulse 100 MON; Resp 24 S; Pulse Ox 100% on BiPAP; tk1 05:00 BP 102 / 74 RA Supine (auto/reg); Pulse 100 MON; Resp 26; Pulse Ox 100% on BiPAP; tk1 05:00 BP 101 / 75 RA Supine (auto/reg); Pulse 97 MON; Resp 24 S; Pulse Ox 100% on BiPAP; tk1 05:46 Temp 98.2(T); tk1 06:19 BP 105 / 81 LA Supine (auto/reg); Pulse 96 MON; Resp 20 S; Pulse Ox 100% on BiPAP; Pain tk1 0/10; 01:28 Body Mass Index 32.10 (113.40 kg, 187.96 cm) lp1 Procedures: 03:36 Peripheral line: by aseptic technique a peripheral line was placed in the right [facility] external jugular vein. MDM: 01:32 Patient medically screened. [facility] 03:34 Differential diagnosis: Anemia CHF exacerbation, Myocardial Infarction pneumonia, angel pulmonary edema, Pulmonary Embolism reactive airway disease. Antibiotic administration: Levaquin and Rocephin given, VANCOMYCIN. The patient's Wells Deep Vein Thrombosis Score was calculated as follows: Heart Rate >100 BPM (1.5 Pts) Imm/Surg in last 4 wks (1.5 Pts) Total Score: 3-6 Pts - Mod Risk. Differential Diagnosis: Bronchitis Influenza Upper Respiratory Infection Pharyngitis Viral Syndrome Pneumonia. The patient's pulmonary embolism risk score was calculated as follows: the patients heart rate is greater than 100 beats per minute (1.5 Pts) patient has experienced immobilization or surgery in the last four weeks (1.5 Pts) Total Score: 3-6 points. This patient was found to be at moderate risk for a pulmonary embolism by using the Well's assessment criteria. Immunization status: Influenza vaccine:. Data reviewed: vital signs, nurses notes, lab test result(s), EKG, radiologic studies, CT scan, plain films. 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 Test interpretation: by ED physician or midlevel provider: ECG, plain radiologic studies. Counseling: I had a detailed discussion with the patient and/or guardian regarding: the historical points, exam findings, and any diagnostic results supporting the discharge/admit diagnosis, lab results, radiology results, the need for further work-up and treatment in the hospital. 08/08 01:35 Order name: CBC with Diff; Complete Time: 02:44 [facility] 08/08 01:35 Order name: Basic Metabolic Panel; Complete Time: 03:19 [facility] 08/08 01:35 Order name: Troponin HS; Complete Time: 03:19 [facility] 08/08 01:35 Order name: Lactate; Complete Time: 02:44 [facility] 08/08 01:35 Order name: Procalcitonin; Complete Time: 03:06 [facility] 08/08 01:35 Order name: COVID-19/FLU A+B (Document "Date of Onset" if Symptomatic); Complete Time: [facility] 03:08/08 01:49 Order name: Blood Culture Adult (2) lp1 08/08 03:08 Order name: NT PRO-BNP; Complete Time: 03:19 EDMN 08/08 03:28 Order name: ABG; Complete Time: 05:34 lp1 08/08 04:19 Order name: Lactate tk1 08/08 05:02 Order name: Lactate Sepsis 2 HR Follow-up; Complete Time: 05:34 EDMN 08/08 08:19 Order name: Glucose, Ancillary Testing [facility] 08/08 08:58 Order name: Phosphorus EDMN 08/08 01:35 Order name: XRAY Chest (1 view) [facility] 08/08 03:24 Order name: CT Chest Abdomen Pelvis W/O Contrast [facility] 08/08 08:58 Order name: Creatine Phosphokinase [facility] 08/08 08:58 Order name: CKMB Creatine Kinase MB EDMN 08/08 08:58 Order name: Troponin High Sensitivity [facility] 08/08 08:58 Order name: Lipid Profile [facility] 08/08 08:58 Order name: T4 Free EDMN 08/08 08:58 Order name: Magnesium EDMN 08/08 08:58 Order name: Thyroid Stimulating Hormone [facility] 08/08 09:50 Order name: Lactate [facility] 08/08 10:12 Order name: Hemoglobin A1c [facility] 08/08 12:49 Order name: Glucose, Ancillary Testing [facility] 08/08 13:55 Order name: Troponin High Sensitivity [facility] 08/08 16:53 Order name: Glucose, Ancillary Testing [facility] 08/08 18:03 Order name: Creatine Phosphokinase [facility] 08/08 18:03 Order name: CKMB Creatine Kinase MB [facility] 08/08 01:35 Order name: EKG; Complete Time: 01:36 [facility] 08/08 01:35 Order name: Cardiac monitoring; Complete Time: 02:15 [facility] 08/08 01:35 Order name: EKG - Nurse/Tech; Complete Time: 04:41 [facility] 08/08 01:35 Order name: IV Saline Lock; Complete Time: 02:15 [facility] 08/08 01:35 Order name: Labs collected and sent; Complete Time: 02:15 [facility] 08/08 01:35 Order name: O2 Per Protocol; Complete Time: 02:15 [facility] 08/08 01:35 Order name: O2 Sat Monitoring; Complete Time: 02:15 [facility] 08/08 01:35 Order name: Urine Dipstick-Ancillary (obtain specimen) [facility] 08/08 03:19 Order name: Wound Care: CLEAN AND COVER RIGHT FOOT, BETADINE IMPREGNATED GAUZE; [facility] Complete Time: 04:41 08/08 03:42 Order name: BIPAP [facility] 08/08 05:35 Order name: Echo w/ Doppler [facility] 08/08 05:35 Order name: US Extremity Venous W Compression David [facility] 08/08 07:30 Order name: US [facility] 08/08 08:19 Order name: US [facility] 08/08 19:09 Order name: CT [facility] EC: Rate is 123 beats/min. Rhythm is regular. QRS [place] is Normal. MI interval is normal. [facility] QRS interval is normal. QT interval is normal. No Q waves. T waves are Normal. No ST changes noted. Clinical impression: Sinus tachycardia. Interpreted by me. Reviewed by me. Administered Medications: 02:14 Drug: NS 0.9% 500 ml Route: IV; Rate: bolus; Infused Over: 1 hrs; Site: right hand; tk1 Delivery: Primary tubing; 03:15 Follow up: IV Status: Completed infusion; IV Intake: 500ml tk1 04:09 Follow up: Response: No adverse reaction tk1 02:14 Drug: Rocephin (cefTRIAXone) 1 grams Route: IV; Rate: per protocol; Infused Over: 30 tk1 mins; Site: right hand; Delivery: Primary tubing; 03:15 Follow up: Response: No adverse reaction; IV Status: Completed infusion; IV Intake: [id number] 03:00 Drug: NS 0.9% 1000 ml Route: IV; Rate: 125 ml/hr; Infused Over: 125 continuous; Site: tk1 right hand; Delivery: Primary tubing; 03:15 Drug: Aspirin Chewable Tablet 324 mg Route: PO; tk1 04:06 Follow up: Response: No adverse reaction tk1 03:17 Drug: Insulin Regular Human 10 units {Co-Signature: bryson (Digna Mittal RN).} Route: tk1 IVP; Rate: 10 units/min; Infused Over: 1 mins; Site: right hand; 04:07 Follow up: Response: No adverse reaction tk1 03:20 Drug: Lovenox (enoxaparin) 100 mg Route: Sub-Q; Site: left upper abdomen; tk1 04:06 Follow up: Response: No adverse reaction tk1 03:22 Drug: Pepcid (famotidine) 20 mg Route: IVP; Rate: 10 mg/min; Infused Over: 2 mins; tk1 Site: right jugular; 04:06 Follow up: Response: No adverse reaction tk1 03:25 Dru mg of (Zithromax (azithromycin) 500 mg, NS 0.9% 250 ml) Route: IVPB; Rate: tk1 500 mg/hr; Infused Over: 1 hrs; Site: right hand; Delivery: Primary tubing; 04:40 Follow up: Response: No adverse reaction; IV Status: Completed infusion; IV Intake: tk1 250ml 03:58 Drug: Tetanus-Diphtheria Toxoid Adult 0.5 ml {Elevator Builder: [employer]. Exp: tk1 10/05/2022. Lot #: [id number]. } Route: IM; Site: left deltoid; 04:40 Follow up: Response: No adverse reaction tk1 05:47 Follow up: Response: No adverse reaction tk1 03:59 Drug: vancoMYCIN 2 grams Route: IVPB; Rate: calculated rate; Infused Over: 2 hrs; Site: tk1 right jugular; Delivery: Primary tubing; 06:21 Follow up: Response: No adverse reaction; IV Status: Completed infusion; IV Intake: tk1 500ml 04:19 Drug: Tylenol 1000 mg Route: PO; tk1 05:46 Follow up: Temp 98.2 Tympanic; Response: Temperature is decreased tk1 05:05 Drug: NS 0.9% 1000 ml Route: IV; Rate: 1 bolus; Site: right jugular; Delivery: Primary tk1 tubing; 06:20 Follow up: IV Status: Completed infusion; IV Intake: 1000ml tk1 06:21 Follow up: Response: No adverse reaction tk1 Disposition Summary: 08/08/21 03:30 Hospitalization Ordered Hospitalization Status: Inpatient Admission angel Provider: Halina Kaye cha Condition: Serious angel Problem: new angel Symptoms: are unchanged angel Bed/Room Type: Standard angel Location: Telemetry/MedSurg (Inpatient)(08/08/21 18:34) em1 Room Assignment: 214(08/08/21 18:34) em1 Diagnosis - Dyspnea angel - Other pneumonia, unspecified organism - BILATERAL angel - Tachycardia, unspecified angel - Type 2 diabetes mellitus with hyperglycemia angel - Non ST elevation NE angel - Type 2 diabetes mellitus with foot ulcer - LEFT CALCANEOUS angel - Obesity, unspecified angel - Elevated white blood cell count angel - Hypoxemia angel Forms: - Medication Reconciliation Form angel - SBAR form angel Signatures: Dispatcher [employer] Daniel Hampton MD MD cha Martinez, Eric em1 Nell Alexis RN RN lp1 Neetu Lundberg RN RN Ratna Hernández tk1 Evita Boyer PA PA sb3 Digna Mittal RN ke1 Corrections: (The following items were deleted from the chart) 03:05 02:45 PROBNP+C.LAB.BRZ ordered. EDMS EDMS 04:07 03:30 Intensive Care Unit angel cg 04:07 03:30 angel cg 18:34 04:07 [facility] ER HOLD cg em1 18:34 04:07 ERHOLD- cg em1
--- NOTE | 2021-08-08 03:31 | ER ---
Nurse's Notes [facility] Name: Alexx Maher Age: 56 yrs Sex: Male : 1965 Arrival Date: 08/08/2021 Time: 01:07 Bed 17 Private MD: Diagnosis: Dyspnea;Other pneumonia, unspecified organism-BILATERAL;Tachycardia, unspecified;Type 2 diabetes mellitus with hyperglycemia;Non ST elevation DC;Type 2 diabetes mellitus with foot ulcer-LEFT CALCANEOUS;Obesity, unspecified;Elevated white blood cell count;Hypoxemia Presentation: 08/08 01:28 Chief complaint: Patient states: shortness of breath, chills, cough x 2-3 days. lp1 Coronavirus screen: chills, cough unrelated to allergies, difficulty breathing, fever, shaking with chills, shortness of breath. Ebola Screen: No symptoms or risks identified at this time. Initial Sepsis Screen: Does the patient meet any 2 criteria? RR > 20 per min. HR > 90 bpm. Does the patient have a suspected source of infection? Yes: Productive cough/pneumonia. Risk Assessment: Do you want to hurt yourself or someone else? Patient reports no desire to harm self or others. Onset of symptoms was August 08, 2021. : Method Of Arrival: Wheelchair lp1 01:28 Acuity: VISHAL 2 lp1 Triage Assessment: 19:20 Respiratory: Onset: The symptoms/episode began/occurred gradually. hemal 19:21 Respiratory: the patient has moderate shortness of breath. hemal Historical: - Allergies: :31 PENICILLINS; lp1 - Home Meds: :31 Synjardy oral [Active]; Buspirone Oral [Active]; Actos Oral [Active]; lp1 - PMHx: 01:31 Diabetes - NIDDM; PTSD; lp1 - PSHx: 01:31 Back surgery; lp1 - Immunization history:: Adult Immunizations up to date, Client reports receiving the 2nd dose of the Covid vaccine. - Social history:: Smoking status: Patient denies any tobacco usage or history of. Screenin:33 Abuse screen: Denies threats or abuse. Denies injuries from another. Nutritional lp1 screening: No deficits noted. Tuberculosis screening: No symptoms or risk factors identified. 04:50 Fall Risk No fall in past 12 months (0 pts). Secondary diagnosis (15 points) Left foot tk1 wound.. IV access (20 points). Ambulatory Aid- None/Bed Rest/Nurse Assist (0 pts). Gait- Normal/Bed Rest/Wheelchair (0 pts) Mental Status- Oriented to own ability (0 pts). Total Garcia Fall Scale indicates Low Risk Score (25-44 pts). Fall prevention measures have been instituted. Side Rails Up X 2 Placed close to Nursing Station Family Present and informed to notify staff if they need to leave bedside As available Patient and Family Educated on Fall Prevention Program and strategies. Assessment: 01:45 General: Appears comfortable, obese, unkempt, well developed, well nourished, Behavior tk1 is calm, cooperative, appropriate for age. 02:13 Reassessment: 2nd set Blood Cultures collected. tk1 03:00 Reassessment: No changes from previously documented assessment. Patient and/or family tk1 updated on plan of care and expected duration. Pain level reassessed. Patient is alert, oriented x 3, equal unlabored respirations, skin warm/dry/pink. Patient placed on BiPAP. Patient denies pain at this time. 04:42 Reassessment: Follow up Lactate drawn and sent to lab. Cleansed left foot wounds x2 tk1 with soap and water. Dressed with betadine gauze and wrapped with sonia. Secured with tape. Patient tolerated well. Pain: Denies pain. Neuro: Level of Consciousness is awake, alert, obeys commands, Oriented to person, place, time, Chief Green Officer are equal bilaterally Moves all extremities. Cardiovascular: Capillary refill < 3 seconds is brisk in bilateral fingers Rhythm is sinus tachycardia. Respiratory: Airway is patent Respiratory effort is even, unlabored, Respiratory pattern is regular, symmetrical, Breath sounds are diminished bilaterally. in left lower lobe and right lower lobe. GI: No deficits noted. No signs and/or symptoms were reported involving the gastrointestinal system. : Reports Diagnosed a couple of years ago with a cyst on one of his testicles. States, he never followed up because he lost his job. : No deficits noted. No signs and/or symptoms were reported regarding the genitourinary system. EENT: No deficits noted. No signs and/or symptoms were reported regarding the EENT system. 04:50 Derm: Wound noted ball of left foot and heel of left foot Wound is Patient states, they tk1 were blisters and he "popped" them. Musculoskeletal: No deficits noted. No signs and/or symptoms reported regarding the musculoskeletal system. 05:00 Reassessment: Patient and/or family updated on plan of care and expected duration. Pain tk1 level reassessed. Patient is alert, oriented x 3, equal unlabored respirations, skin warm/dry/pink. Patient denies pain at this time. 06:19 Reassessment: No changes from previously documented assessment. Ultrasound in progress. tk1 Patient denies pain at this time. 19:11 General: I recv'd report on the pt in and called registration to "flip" the pt, as hemal he has a room assignment, 214. Report will be called after 1914, per policy. . 19:19 Reassessment: I attempted to call report, but they are still in report. They took my hemal extension and will call me back. . 20:02 Reassessment: They never called for report and having recv'd additional patients hemal simultaneously, I have just now been able to call report. I am "on hold", waiting to give report. . 20:09 Reassessment: Report was given to Fernanda. . hemal Vital Signs: 01:28 BP 108 / 80; Pulse 125; Resp 26; Temp 99.2(O); Pulse Ox 97% on R/A; Weight 113.4 kg lp1 (R); Height 6 ft. 2 in. (187.96 cm); 01:30 BP 126 / 84 LA Supine (auto/reg); Pulse 124 MON; Resp 24 S; Pulse Ox 96% on R/A; tk1 02:15 BP 122 / 84 RA Supine (auto/reg); Pulse 118 MON; Resp 24 S; Pulse Ox 94% on R/A; tk1 03:00 BP 118 / 84 RA Supine (auto/reg); Pulse 113 MON; Resp 26; Pulse Ox 93% on R/A; tk1 04:00 BP 105 / 79 (auto/); Pulse 100 MON; Resp 24 S; Pulse Ox 100% on BiPAP; tk1 05:00 BP 102 / 74 RA Supine (auto/reg); Pulse 100 MON; Resp 26; Pulse Ox 100% on BiPAP; tk1 05:00 BP 101 / 75 RA Supine (auto/reg); Pulse 97 MON; Resp 24 S; Pulse Ox 100% on BiPAP; tk1 05:46 Temp 98.2(T); tk1 06:19 BP 105 / 81 LA Supine (auto/reg); Pulse 96 MON; Resp 20 S; Pulse Ox 100% on BiPAP; Pain tk1 0/10; 01:28 Body Mass Index 32.10 (113.40 kg, 187.96 cm) lp1 Vitals: 05:00 Cardiac Rhythm Assessment Regular Sinus rhythm. tk1 ED Course: 01:07 Patient arrived in ED. ja2 01:30 Triage completed. lp1 01:30 Arm band placed on. lp1 01:32 Daniel Yang MD is Attending Physician. angel 01:33 Patient has correct armband on for positive identification. Bed in low position. lp1 bus driver/monitor on. Pulse ox on. NIBP on. 01:56 XRAY Chest (1 view) In Process Unspecified. EDMS 02:13 Ratna Ramos is Primary Nurse. tk1 02:15 Blood Culture Adult (2) Sent. tk1 02:15 COVID-19/FLU A+B (Document "Date of Onset" if Symptomatic) Sent. tk1 02:15 Lactate Sent. tk1 02:15 Procalcitonin Sent. tk1 02:15 Basic Metabolic Panel Sent. tk1 02:15 Troponin HS Sent. tk1 02:15 CBC with Diff Sent. tk1 02:36 Notified ED physician of a critical lab result(s). Troponin 391.1, Lactate 3.3. lp1 03:28 Halina Kaye MD is Hospitalizing Provider. angel 04:39 Lactate Sent. tk1 04:50 No provider procedures requiring assistance completed. Inserted saline lock: 20 gauge tk1 in right hand, using aseptic technique. Blood collected. 19:20 Patient admitted, IV remains in place. hemal Administered Medications: 02:14 Drug: NS 0.9% 500 ml Route: IV; Rate: bolus; Infused Over: 1 hrs; Site: right hand; tk1 Delivery: Primary tubing; 03:15 Follow up: IV Status: Completed infusion; IV Intake: 500ml tk1 04:09 Follow up: Response: No adverse reaction tk1 02:14 Drug: Rocephin (cefTRIAXone) 1 grams Route: IV; Rate: per protocol; Infused Over: 30 tk1 mins; Site: right hand; Delivery: Primary tubing; 03:15 Follow up: Response: No adverse reaction; IV Status: Completed infusion; IV Intake: [id number] 03:00 Drug: NS 0.9% 1000 ml Route: IV; Rate: 125 ml/hr; Infused Over: 125 continuous; Site: tk1 right hand; Delivery: Primary tubing; 03:15 Drug: Aspirin Chewable Tablet 324 mg Route: PO; tk1 04:06 Follow up: Response: No adverse reaction tk1 03:17 Drug: Insulin Regular Human 10 units {Co-Signature: ke1 (Digna Mittal RN).} Route: tk1 IVP; Rate: 10 units/min; Infused Over: 1 mins; Site: right hand; 04:07 Follow up: Response: No adverse reaction tk1 03:20 Drug: Lovenox (enoxaparin) 100 mg Route: Sub-Q; Site: left upper abdomen; tk1 04:06 Follow up: Response: No adverse reaction tk1 03:22 Drug: Pepcid (famotidine) 20 mg Route: IVP; Rate: 10 mg/min; Infused Over: 2 mins; tk1 Site: right jugular; 04:06 Follow up: Response: No adverse reaction tk1 03:25 Dru mg of (Zithromax (azithromycin) 500 mg, NS 0.9% 250 ml) Route: IVPB; Rate: tk1 500 mg/hr; Infused Over: 1 hrs; Site: right hand; Delivery: Primary tubing; 04:40 Follow up: Response: No adverse reaction; IV Status: Completed infusion; IV Intake: tk1 250ml 03:58 Drug: Tetanus-Diphtheria Toxoid Adult 0.5 ml {Laborer Shaft Sinking: Guarnic. Exp: tk1 10/05/2022. Lot #: [id number]. } Route: IM; Site: left deltoid; 04:40 Follow up: Response: No adverse reaction tk1 05:47 Follow up: Response: No adverse reaction tk1 03:59 Drug: vancoMYCIN 2 grams Route: IVPB; Rate: calculated rate; Infused Over: 2 hrs; Site: tk1 right jugular; Delivery: Primary tubing; 06:21 Follow up: Response: No adverse reaction; IV Status: Completed infusion; IV Intake: tk1 500ml 04:19 Drug: Tylenol 1000 mg Route: PO; tk1 05:46 Follow up: Temp 98.2 Tympanic; Response: Temperature is decreased tk1 05:05 Drug: NS 0.9% 1000 ml Route: IV; Rate: 1 bolus; Site: right jugular; Delivery: Primary tk1 tubing; 06:20 Follow up: IV Status: Completed infusion; IV Intake: 1000ml tk1 06:21 Follow up: Response: No adverse reaction tk1 Intake: 03:15 IV: 50ml; Total: 50ml. tk1 03:15 IV: 500ml; Total: 550ml. tk1 04:40 IV: 250ml; Total: 800ml. tk1 06:20 IV: 1000ml; Total: 1800ml. tk1 06:21 IV: 500ml; Total: 2300ml. tk1 Outcome: 03:30 Decision to Hospitalize by Provider. [facility] 19:20 Condition: stable hemal 19:20 Admitted to hemal 20:53 Patient left the ED. hemal Signatures: Dispatcher [employer] EDMS Daniel Yang MD MD cha Pena, Laura, RN RN lp1 Melania Rashid Brenda, RN RN bo Kirby, Tammie tk1 Digna Mittal RN ke1 Corrections: (The following items were deleted from the chart) 04:47 01:45 General: Appears comfortable, obese, unkempt, well developed, well nourished, tk1 Behavior is calm, cooperative, appropriate for age, tk1
[2021-08-08] MEDS ORDERED: VANCOMYCIN 1 GM/VIAL ONE (03:56)
[2021-08-08] MEDS ORDERED: TETANUS & DIPHTHERIA TOX,ADULT 0.5 ML VIAL ONE (03:57)
[2021-08-08] MEDS ORDERED: NA CHLORIDE 0.9% 500 ML ONE (03:57)
--- NOTE | 2021-08-08 04:03 | P.HP ---
Certification for Inpatient Patient admitted to: Inpatient With expected LOS: >2 Midnights Patient will require the following post-hospital care: None Practitioner: I am a practitioner with admitting privileges, knowledge of patient current condition, hospital course, and medical plan of care. Services: Services provided to patient in accordance with Admission requirements found in Title 42 Section 412.3 of the Code of Federal Regulations Patient History Date of Service: 08/08/21 Reason for admission: NSTEMI, SHOB, foot ulcer History of Present Illness: Patient is a 56-year-old male with type 2 hbqujzqksnw-vavyrhc-pypcmeoda, hypertension, hyperlipidemia who presented to the ED with complaints of cough, shortness of breath, and flulike symptoms that began about 3 days ago. Upon arrival he flagged for sepsis due to his tachycardia and tachypnea. Labs were found to be significant for WBC 13.7, hemoglobin 13.3, sodium 130, glucose 385, troponin high-sensitivity 391, procalcitonin 0.[address] abnormalities. CT chest without contrast showed diffuse interstitial opacities bilaterally suggestive of interstitial edema or pneumonia. An ABG was donepH 7.43, PCO2 34.2, PO2 58.6. Patient was also noted to have a diabetic foot ulcer on his left heel positive for decreased range of motion, erythema, pain, swelling. An EJ was inserted and patient was given Rocephin, 500 mL bolus, 324 mg of aspirin, 10 units of insulin, 100 mg of Lovenox, Pepcid, Zithromax, vancomycin. CT chest abdomen pelvis ordered and is pending. ED provider wishes to admit patient to ICU for continued treatment of several conditions. Allergies Penicillins Adverse Reaction (Verified 12/15/19 00:08) Anaphylaxis Home medications list reviewed: Yes (Patient takes Synjardy and Actos) Home Medications: Azithromycin Tab [Zithromax*] 250 mg PO DAILY #4 tab 12/15/19 Fludrocortisone [Florinef *] 0.1 mg PO DAILY #10 tab 12/15/19 - Past Medical/Surgical History Diabetic: Yes -: DM -: HTN -: HLD -: Back Surgery Psychosocial/ Personal History: Patient lives with his . - Family History Family History: Reviewed- Non-Contributory - Family History Father Notes: brain aneurysm - Social History Smoking Status: Never smoker Alcohol use: No CD- Drugs: No Caffeine use: Yes Place of Residence: Home Review of Systems General: Chills Respiratory: Cough, Shortness of Breath Cardiovascular: Palpitations Physical Examination - Physical Exam General: Alert, In no apparent distress HEENT: Atraumatic, PERRLA, Mucous membr. moist/pink, EOMI, Sclerae nonicteric Neck: Supple, 2+ carotid pulse no bruit, No LAD, Without JVD or thyroid abnormality Cardiovascular: Normal S1 S2 Gastrointestinal: Normal bowel sounds, No tenderness Musculoskeletal: No tenderness Integumentary: Diabetic ulcer Neurological: Normal speech, Normal strength at 5/5 x4 extr, Normal tone, Normal affect - Studies Laboratory Data (last 24 hrs) 08/08/21 01:47: Sodium 130 L, Potassium 3.8, BUN 13, Creatinine 1.12, Glucose 385 H 08/08/21 01:47: WBC 13.70 H, Hgb 13.3 L, Hct 39.0 L, Plt Count 318 Assessment and Plan - Problems (Diagnosis) (1) NSTEMI (non-ST elevated myocardial infarction) Current Visit: Yes Status: Acute (2) Dyspnea and respiratory abnormalities Current Visit: Yes Status: Acute (3) Diabetic foot ulcer associated with type 2 diabetes mellitus Current Visit: Yes Status: Acute Qualifiers: Diabetic foot ulcer location: heel Laterality: left Non-pressure ulcer stage: unspecified non-pressure ulcer stage Qualified Code(s): E11.621 - Type 2 diabetes mellitus with foot ulcer; L97.429 - Non-pressure chronic ulcer of left heel and midfoot with unspecified severity (4) Obesity Current Visit: Yes Status: Acute Qualifiers: Obesity type: due to excess calories Obesity classification: unspecified obesity classification (5) Pneumonia Current Visit: Yes Status: Acute Qualifiers: Pneumonia type: due to unspecified organism Laterality: bilateral Lung location: unspecified part of lung Qualified Code(s): J18.9 - Pneumonia, unspecified organism (6) Hypoxemia Current Visit: Yes Status: Acute - Plan ~Patient admitted to ICU~ NSTEMI: Initial troponin was elevated at 391. Will trend q6hx2. CPK and CK-MB ordered x3. EKG was negative for ST changes. Patient received 324 mg of aspirin in the ED and 100 mg of Lovenox. Echo and carotid ultrasound ordered. Cardiology consulted Sepsis: Patient initially flag sepsis in the ED because he was tachypneic and tachycardic. He was found to have a lactic acid of 3.3 and a white blood cell count of 13.9. Patient was given Vanco, azithromycin, and Rocephin in the ED. His CT chest showed signs of pulmonary edema versus pneumonia. Will trend lactic acid every 4 hours. Patient will receive sepsis fluids. Shortness of breath/hypoxemia: Patient was noted to be short of breath. ABG resulted with a pH of 7.43, PCO2 34.2, PO2 58.6. Pending CT chest with contrast. We will continue on supplemental oxygen. Breathing treatments ordered. Dr. Alvarez consulted. Diabetic foot ulcerleft: Patient was noted to have a diabetic foot ulcer on his left calcaneus that appears infected. Covered with antibiotics. Will consult general surgery/podiatry if necessary. Patient does not require home insulin but it appears his diabetes is uncontrolled as his glucose was 385 in the ED. Will check A1c. Moderate sliding scale insulin with ACHS accuchecks. Discharge Plan: Home Plan to discharge in: Greater than 2 days - Advance Directives Does patient have a Living Will: No Does patient have a Durable POA for Healthcare: No - Code Status/Comfort Care Code Status Assessed: Yes (Full) Critical Care: No Time Spent Managing Pts Care (In Minutes): 70
[2021-08-08 04:21] LABS: Arterial Blood Carboxyhemoglob 1.4 % (0-1.5); Blood Gas Oxyhemoglobin 88.2 % (94-97); Blood O2 Saturation 90.3 % (92-98.5)
[2021-08-08] MEDS ORDERED: ACETAMINOPHEN 500 MG TAB ONE ×2 (04:21→15:37)
[2021-08-08] MEDS ORDERED: NA CHLORIDE 0.9% 1,000 ML ONE ×2 (05:02→21:07)
[2021-08-08] MEDS ORDERED: ONDANSETRON 4 MG/2 ML VIAL IV PRN (07:18)
[2021-08-08] MEDS ORDERED: ALBUTEROL 2.5 MG/3 ML NEB SOL NEB PRN (07:18)
--- NOTE | 2021-08-08 07:28 | RAD REPORT ---
EXAM DESCRIPTION: US - Extrem Venous W Compress David - 08/08/2021 6:23 am CLINICAL HISTORY: Pain;Swelling COMPARISON: None. TECHNIQUE: Real-time sonographic evaluation of the bilateral lower extremity common femoral, superfi cial femoral, popliteal and posterior tibial veins was performed. FINDINGS: Normal compressibility, flow augmentation, phasic flow and spontaneous flow are identified in the left and right lower extremity common femoral, superficial femoral, popliteal and posterior t ibial veins. No intraluminal filling defects seen. IMPRESSION: No DVT in either lower extremity.
--- NOTE | 2021-08-08 07:41 | EKG ---
Test Date: 2021-08-08 Test Time: 03:20:42 Linoleum Floor Installer: LUCIA MEASUREMENT RESULTS: Intervals: Rate: 123 UT: 136 QRSD: 102 QT: 302 QTc: 432 [place]: P: 22 UT: 136 QRS: 58 T: 83 INTERPRETIVE STATEMENTS: Sinus tachycardia with premature atrial complexes Nonspecific ST abnormality Abnormal ECG Compared to ECG 12/14/2019 14:20:45 Atrial premature complex(es) now present ST (T wave) deviation now present Sinus rhythm no longer present Electronically Signed On 08-08-21 07:41:12 CDT by Chava Marrufo
--- NOTE | 2021-08-08 08:18 | RAD REPORT ---
EXAM DESCRIPTION: US - CP - 08/08/2021 7:49 am CLINICAL HISTORY: NSTEMI COMPARISON: No comparisonsCarotid Artery Bilateral dated 12/15/2019 TECHNIQUE: Real-time sonographic evaluation of bilateral carotid and vertebral systems was performed . Moore scale and Doppler interrogation were performed with waveform tracing bilaterally. FINDINGS: Normal high resistance waveforms are noted in both external carotid arteries. The common c arotid arteries and internal carotid arteries show normal low resistance waveforms. Plaquing changes are present in the right internal carotid artery. Velocity reaches 155 cm/second. Th e right-side ICA/CCA ratio 1.88. No significant plaquing in the left internal or common carotid arter ies. Left-side ICA/CCA ratio is 1.37 in value. No dissection is seen. No other significant plaquing c hanges identifiable. Antegrade flow seen in both vertebral arteries. Velocity values and ratios were recorded and are retained in the patient's imaging records. IMPRESSION: Right internal carotid artery plaquing changes are present. Based on visual inspection a nd velocity values, estimated stenosis is 50%. No significant stenosis of the left carotid vasculature.
[2021-08-08] MEDS: INSULIN -REGULAR HUMAN 50 UNIT/0.5 ML ML SQ SCH ×4 (08:30→21:01)
[2021-08-08] MEDS ORDERED: ASPIRIN EC 81 MG TAB PO ONE (08:40)
[2021-08-08] MEDS ORDERED: ENOXAPARIN 40 MG/0.4 ML SQ ONE (08:42)
[2021-08-08 08:45] LABS: CKMB Creatine Kinase MB 1.5 ng/mL (1.0-3.6); Phosphorus 2.5 mg/dL (2.5-4.9); Thyroid Stimulating Hormone 0.961 uIU/mL (0.360-3.740)
[2021-08-08] MEDS ORDERED: NA CHLORIDE 0.9% 100 ML IV ONE (08:46)
[2021-08-08 08:58] LABS: Troponin High Sensitivity 1054.8 pg/mL (<58.9)
[2021-08-08] MEDS: CEFTRIAXONE 1,000 MG in NA CHLORIDE 0.9% 50 ML IVPB SCH (09:00)
[2021-08-08] MEDS: ASPIRIN EC 81 MG TAB PO SCH (09:00)
[2021-08-08] MEDS: ENOXAPARIN 40 MG/0.4 ML SQ SCH (09:00)
[2021-08-08] MEDS ORDERED: INFLUENZA VACCINE (for 6+ mo) 0.5 ML DOSE IMVAC ONE (10:00)
[2021-08-08 10:02] VITALS: BMI 32.1
[2021-08-08] MEDS ORDERED: NA CHLORIDE 0.9% 0 ML ONE (11:59)
[2021-08-08] MEDS: NA CHLORIDE 0.9% 1,000 ML IV SCH ×2 (12:00→15:18)
--- NOTE | 2021-08-08 12:38 | CON ---
Admitted on 08/08/[address] Yang from the emergency room. Reason For Consultation: Elevated troponin. History Of Present Illness: Mr. Maher is a 56-year-old white male. Has a history of diabetes, post traumatic stress disorder, orthostatic hypotension. Came in with cough, shortness of breath. No donna st pain, hypoxia. He denied any nausea, vomiting, diaphoresis, PND, orthopnea, pedal edema, palpitat ion, or syncope. EKG is unremarkable. Chest x-ray is pending. Carotid Doppler is pending. Echocar diogram is pending. Venous Doppler is pending. Past Medical History: As stated above. Allergies: HE IS ALLERGIC TO PENICILLIN. Review of Systems: Negative. Social History: Positive for tobacco. Family History: Noncontributory. Medications: At home include Zithromax, Florinef, Actos, Synjardy, buspirone. Physical Examination: General: He was in a facial BiPAP with a pO2 of 58, pCO2 of 34, pH of 7.43. HEENT: Negative. Neck: Supple with no bruit. Chest: Reveals crackles throughout and expiratory wheezing. Cardiac: Revealed a regular rhythm and rate. No murmurs, gallops, or rubs. Abdomen: Obese, but benign. Extremities: Revealed no clubbing, cyanosis, or edema. He has what appeared to be cellulitis on the left foot. Diagnostic Data: Showed white count of 13,000. Procalcitonin was elevated. Glucose was 385. Tropo leticia is 391. Venous Doppler is pending. Chest x-ray is pending. Echocardiogram is pending and carot id Doppler is pending. Impression And Plan: Elevated troponin secondary to what seems to be sepsis with elevated white coun t and Procalcitonin. We will see what the echo shows before making further decisions. He is also hy poxic, which can account for the elevated troponin. I do not think we are dealing with acute coronar y syndrome. Again, we will see what the echo, venous Doppler, and carotid Doppler shows. He has lef t lower extremity infection, cellulitis, wounds, which may explain his procalcitonin and elevated whi te count. He needs to be on antibiotics. He needs to have his glucose adjusted and treated better. I think he should have an outpatient stress test down the road and certainly no plan for heart mike terization at this point. DOROTEO/JOSE Voice ID: [id number] Report ID: [id number]
[2021-08-08] MEDS ORDERED: ALBUTEROL 2.5 MG/3 ML NEB SOL ONE (15:05)
[2021-08-08] MEDS ORDERED: MORPHINE 2 MG/ML SYR ONE (15:29)
[2021-08-08] MEDS: MORPHINE 2 MG/ML SYR IV PRN (15:32)
[2021-08-08] MEDS: ACETAMINOPHEN 500 MG TAB PO PRN (15:38)
[2021-08-08 17:58] LABS: Creatine Phosphokinase 135 U/L (39-308)
[2021-08-08 18:02] LABS: CKMB Creatine Kinase MB < 1.0 ng/mL (1.0-3.6)
--- NOTE | 2021-08-08 18:12 | P.PN ---
Date of Service: 08/08/21 Patient seen and examined. He is complaining of shortness of breath He is stable on oxygen by nasal cannula but prefers to be on BiPAP for shortness of breath. Troponin trended up to 1126. Diagnosis: NSTEMI Acute CHF Foot Ulcer Acute respiratory failure with hypoxia Morbid obesity Plan: Discontinue IV fluid. Start IV Lasix for possible CHF. Continue antibiotics for now. Wound care consult for foot ulcer Supplemental oxygen Cardiology input appreciated. Echocardiogram result is pending. Bronchodilators. CPAP as needed.
[2021-08-08] MEDS ORDERED: MORPHINE 4 MG/ML SYR ONE (18:17)
[2021-08-08] MEDS ORDERED: ONDANSETRON 4 MG/2 ML VIAL ONE (18:17)
--- NOTE | 2021-08-08 19:07 | RAD REPORT ---
EXAM DESCRIPTION: CT - Chest Abd Pelvis Wo Con - 08/08/2021 6:30 am CLINICAL HISTORY: The patient is 56 years old and is Male; Congestion;Cough;Dyspnea TECHNIQUE: Axial computed tomography images of the chest, abdomen and pelvis without intravenous con trast. Sagittal and coronal reformatted images were created and reviewed. This CT exam was perfor med using one or more of the following dose reduction techniques: automated exposure control, adjus tment of the mA and/or kV according to patient size, and/or use of iterative reconstruction technique . COMPARISON: No relevant prior studies available. FINDINGS: CHEST: Lungs: Bilateral lower lobe linear atelectasis. No consolidation or groundglass opacities to suggest pneumonia. Pleural space: No pleural effusion or pneumothorax. Heart: Unremarkable. No cardiomegaly. No significant pericardial effusion. No significant c oronary artery calcifications. Mediastinum: No pneumomediastinum. ABDOMEN: Liver: Borderline hepatic enlargement. Gallbladder and bile ducts: No calcified stones in the gallbladder. No ductal dilation. Pancreas: Unremarkable. No ductal dilation. Spleen: Unremarkable. No splenomegaly. Adrenals: Unremarkable. No mass. Kidneys and ureters: Punctate left nephrolithiasis. The kidneys are otherwise unremarkable. No hydronephrosis or ureter stone. Stomach and bowel: Elongated sigmoid colon. No bowel dilatation or obstruction. No bowel wall thickening. PELVIS: Appendix: The appendix is not visualized. No pericecal inflammation to suggest acute appendicitis . Bladder: Unremarkable. No stones. Reproductive: Unremarkable as visualized. CHEST, ABDOMEN and PELVIS: Intraperitoneal space: Unremarkable. No significant fluid collection. No free air. Bones/joints: No thoracic compression fracture. No acute rib fracture visualized. No lumbar spine fracture. Degenerative disc disease L4-5. Disc osteophyte complexes at L4-5 a nd L5-S1 with moderate central canal stenosis. No acute fracture in the pelvis or proximal femora. No hip dislocation. Soft tissues: Unremarkable. Vasculature: Unremarkable. No aortic aneurysm. Lymph nodes: Unremarkable. No pathologically enlarged lymph nodes. IMPRESSION: 1. Bilateral lower lobe linear atelectasis. 2. Punctate left nephrolithiasis. 3. Additional non-emergent findings as above. Electronically signed by: Lona Laureano MD 08/08/2021 4:43 AM CDT Due to temporary technical issues with the PACS/Fluency reporting system, reports are being signed by the in house radiologists without review as a courtesy to insure prompt reporting. The interpreting radiologist is fully responsible for the content of the report.
--- NOTE | 2021-08-08 19:10 | RAD REPORT ---
EXAM DESCRIPTION: RAD - Chest Single View - 08/08/2021 1:54 am CLINICAL HISTORY: The patient is 56 years old and is Male; Cough;Dyspnea TECHNIQUE: Frontal view of the chest. COMPARISON: No relevant prior studies available. FINDINGS: Lungs: Diffuse interstitial opacities bilaterally suggestive of interstitial edema or pn eumonia. Pleural space: Unremarkable. No pneumothorax. Heart: Unremarkable. Mediastinum: Unremarkable. Bones/joints: Unremarkable. IMPRESSION: Diffuse interstitial opacities bilaterally suggestive of interstitial edema or pneumonia . Electronically signed by: Yuniel Royal MD 08/08/2021 2:05 AM CDT Due to temporary technical issues with the PACS/Fluency reporting system, reports are being signed by the in house radiologists without review as a courtesy to insure prompt reporting. The interpreting radiologist is fully responsible for the content of the report.
[2021-08-08] MEDS: ATORVASTATIN 40 MG TAB PO SCH (20:37)
[2021-08-08 21:26] LABS: Magnesium 2.1 mg/dL (1.8-2.4)
[2021-08-09 06:21] LABS: Absolute Lymphocytes (CBC) 1.5 K/uL (0.7-4.9); Hematocrit 35.4 % (39.6-49.0); Lymphocytes % 12.7 % (15.3-44.8); MPV 8.8 fL (7.6-11.3); RBC Red Blood Cell Count 4.06 M/uL (4.33-5.43)
[2021-08-09 06:43] LABS: BUN Blood Urea Nitrogen 13 mg/dL (7-18); Bicarbonate 20 mmol/L (21-32); Glucose Level 246 mg/dL (74-106); Sodium Level 136 mmol/L (136-145)
--- NOTE | 2021-08-09 07:38 | ECHO ---
HEIGHT: 6 ft 2 in WEIGHT: 250 lb 0 oz DATE OF STUDY: 08/08/[address]: Daniel Yang MD 2-DIMENSIONAL: YES M.MODE: YES DOPPLER: YES COLOR FLOW: YES TDS: NO PORTABLE: YES DEFINITY: NO BUBBLE STUDY: NO DIAGNOSIS: NSTEMI CARDIAC HISTORY: CATHERIZATION: NO SURGERY: NO PROSTHETIC VALVE: NO PACEMAKER: NO MEASUREMENTS (cm) DIASTOLIC (NORMALS) SYSTOLIC (NORMALS) IVSd 1.0 (0.6-1.2) LA Diam 2.5 (1.9-4.0) LVEF 45% LVIDd 6.0 (3.5-5.7) LVIDs 4.6 (2.0-3.5) %FS 23% LVPWd 1.0 (0.6-1.2) Ao Diam 2.8 (2.0-3.7) 2 DIMENSIONAL ASSESSMENT: RIGHT ATRIUM: NORMAL LEFT ATRIUM: NORMAL RIGHT VENTRICLE: NORMAL LEFT VENTRICLE: DEPRESSED FUNCTION TRICUSPID VALVE: NORMAL MITRAL VALVE: PULMONIC VALVE: NORMAL AORTIC VALVE: NORMAL PERICARDIAL EFFUSION: NONE AORTIC ROOT: NORMAL LEFT VENTRICULAR WALL MOTION: MILD GLOBAL HYPOKINESIS. DOPPLER/COLOR FLOW: MILD MITRAL REGURGITATION. COMMENTS: POOR WINDOWS. LEFT VENTRICULAR EJECTION FRACTION APPEARS MILDLY DEPRESSED. QUESTIONABLE SMALL ATRIAL SEPTUM DEFECT BY COLOR DOPPLER. MILD MITRAL REGURGITATION. TECHNOLOGIST: Miles GONSALES
[2021-08-09] MEDS ORDERED: FUROSEMIDE 40 MG/4 ML VIAL IV SCH (09:00)
[2021-08-09] MEDS: CEFTRIAXONE 1,000 MG in NA CHLORIDE 0.9% 50 ML IVPB SCH (09:37)
[2021-08-09] MEDS: ASPIRIN EC 81 MG TAB PO SCH (09:37)
[2021-08-09] MEDS: ENOXAPARIN 40 MG/0.4 ML SQ SCH (09:37)
--- NOTE | 2021-08-09 09:41 | P.CNS ---
Date of Consult: 08/09/21 Reason for Consult: Respiratory failure Chief Complaint: NSTEMI, SHOB, foot ulcer History of Present Illness: Patient is 56 years of age admitted with acute onset of shortness of breath patient hypoxic on admission no prior history of cardiopulmonary problems troponins elevated admitted with non-STEMI Allergies fluoxetine [From Prozac] Allergy (Verified 08/08/21 12:57) Shortness of breath Penicillins Adverse Reaction (Verified 12/15/19 00:08) Anaphylaxis Home Medications: Buspirone HCl [Buspar] 10 mg PO DAILY 08/08/21 Empagliflozin/Metformin HCl [Synjardy Xr 25-1,000 mg Tablet] 25 mg PO DAILY 0 08/08/21 Pioglitazone HCl [Actos] 45 mg PO DAILY 08/08/21 - Past Medical/Surgical History Diabetic: Yes -: DM -: HTN -: HLD -: PTSD -: Chronic back problems -: Back Surgery for spider bite -: tonsillectomy -: adenoidectomy Psychosocial/ Personal History: Patient lives with his . - Family History Father Notes: brain aneurysm - Social History Smoking Status: Unknown if ever smoked Alcohol use: No CD- Drugs: No Caffeine use: Yes Place of Residence: Home Review of Systems 10-point ROS is otherwise unremarkable General: Weakness Respiratory: Shortness of Breath Physical Examination Temp Pulse Resp BP Pulse Ox 98.5 F 107 H 14 137/87 90 L 08/09/21 08:00 08/09/21 08:00 08/09/21 08:00 08/09/21 08:00 08/09/21 08:00 General: Alert, In no apparent distress, Oriented x3 Cardiovascular: No edema, Normal S1 S2 Gastrointestinal: Normal bowel sounds Musculoskeletal: No clubbing - Problems (1) Respiratory failure Current Visit: Yes Status: Acute Plan: Patient is 56 years of age admitted with acute onset of shortness of breath and non-STEMI mild global hypokinesis no evidence of sepsis on CT scan blood cultures are negative mildly elevated white count discussed with the cardiology most likely he is going to need a cath fully anticoagulated patient DC antibiotics add low-dose beta-blockers Qualifiers: Chronicity: acute
[2021-08-09] MEDS: INSULIN -REGULAR HUMAN 50 UNIT/0.5 ML ML SQ SCH ×4 (09:42→21:41)
[2021-08-09] MEDS ORDERED: ENOXAPARIN 80 MG/0.8 ML SQ ONE (10:00)
[2021-08-09] MEDS: METOPROLOL XL 25 MG TAB PO SCH ×2 (11:23→17:04)
--- NOTE | 2021-08-09 16:09 | P.PN ---
Subjective Date of Service: 08/09/21 Chief Complaint: NSTEMI, SHOB, foot ulcer Patient reports shortness of breath with movement. He used CPAP all night. He is currently tolerating 3 L oxygen by nasal cannula. No fever recorded. Physical Examination - Vital Signs Temperature: 97.9 F Blood Pressure: 134/83 Pulse: 97 Respirations: 18 Pulse Ox (%): 99 Assessment And Plan - Current Problems (Diagnosis) (1) Acute diastolic heart failure Current Visit: Yes Status: Acute (2) Acute respiratory failure with hypoxia Current Visit: Yes Status: Acute (3) Diabetic foot ulcer associated with type 2 diabetes mellitus Current Visit: Yes Status: Acute Qualifiers: Diabetic foot ulcer location: heel Laterality: left Non-pressure ulcer stage: unspecified non-pressure ulcer stage Qualified Code(s): E11.621 - Type 2 diabetes mellitus with foot ulcer; L97.429 - Non-pressure chronic ulcer of left heel and midfoot with unspecified severity (4) NSTEMI (non-ST elevated myocardial infarction) Current Visit: Yes Status: Acute (5) Obesity Current Visit: Yes Status: Acute Qualifiers: Obesity type: due to excess calories Obesity classification: unspecified obesity classification (6) DM type 2 (diabetes mellitus, type 2) Current Visit: Yes Status: Acute - Plan Physical Exam General: Alert, In no apparent distress HEENT: Mucous membr. moist/pink, Sclerae nonicteric Neck: Supple, Without JVD. Cardiovascular: Normal S1 S2, no murmur Respiratory: Bilateral diminished breath sounds, clear to auscultation bilaterally. Gastrointestinal: Normal bowel sounds, No tenderness, no hepatosplenomegaly. Musculoskeletal: No tenderness Integumentary: Foot/heel ulcer Neurological: Normal speech, Normal strength at 5/5 x4 extr, Normal affect. Plan: Continue IV Lasix. Echocardiogram showing mildly reduced EF of 45%. Continue full dose Lovenox, aspirin and Plavix. Cardiology to follow. Seen by pulmonaryDr. Ordaz. Patient may have cardiac catheterization on Thursday. BiPAP as needed Titrate oxygen Monitor intake and output. Wound care consult for heel ulcer. Insulin sliding scale for glucose management.
[2021-08-09] MEDS ORDERED: ALBUTEROL 2.5 MG/3 ML NEB SOL NEB PRN (17:00)
[2021-08-09] MEDS: CLOPIDOGREL 75 MG TABLET PO SCH (17:04)
[2021-08-09 18:23] LABS: Phosphorus 1.7 mg/dL (2.5-4.9)
[2021-08-09] MEDS: JUVEN PACKET PO SCH (21:00)
[2021-08-09] MEDS: Enoxaparin 120 MG/0.8 ML SYR SQ SCH (21:42)
[2021-08-09] MEDS: MORPHINE 2 MG/ML SYR IV PRN (21:44)
[2021-08-09] MEDS: ATORVASTATIN 40 MG TAB PO SCH (21:45)
[2021-08-10] MEDS: METOPROLOL XL 25 MG TAB PO SCH ×2 (05:47→17:33)
[2021-08-10 06:01] LABS: Absolute Lymphocytes (CBC) 1.7 K/uL (0.7-4.9); Hematocrit 34.1 % (39.6-49.0); Lymphocytes % 12.7 % (15.3-44.8); MPV 8.6 fL (7.6-11.3); RBC Red Blood Cell Count 3.98 M/uL (4.33-5.43)
[2021-08-10 06:13] LABS: Potassium 4.4 mmol/L (3.5-5.1)
[2021-08-10] MEDS: INSULIN -REGULAR HUMAN 50 UNIT/0.5 ML ML SQ SCH ×4 (08:44→21:00)
[2021-08-10] MEDS: CLOPIDOGREL 75 MG TABLET PO SCH (08:44)
[2021-08-10] MEDS: ASPIRIN EC 81 MG TAB PO SCH (08:44)
[2021-08-10] MEDS: Enoxaparin 120 MG/0.8 ML SYR SQ SCH ×2 (08:44→21:02)
[2021-08-10] MEDS: FUROSEMIDE 40 MG/4 ML VIAL IV SCH (08:48)
[2021-08-10] MEDS: JUVEN PACKET PO SCH ×2 (11:01→21:00)
--- NOTE | 2021-08-10 11:50 | P.PN ---
Subjective Date of Service: 08/10/21 Chief Complaint: NSTEMI, SHOB, foot ulcer Patient reports he is feeling much better today. He had an uneventful night. He is currently tolerating 1 L oxygen by nasal cannula with SaO2 around 99%. He has been ambulatory. No fever recorded. Physical Examination - Vital Signs Temperature: 97.0 F Blood Pressure: 116/78 Pulse: 81 Respirations: 12 Pulse Ox (%): 91 Assessment And Plan - Current Problems (Diagnosis) (1) Acute diastolic heart failure Current Visit: Yes Status: Acute (2) Acute respiratory failure with hypoxia Current Visit: Yes Status: Acute (3) Diabetic foot ulcer associated with type 2 diabetes mellitus Current Visit: Yes Status: Acute Qualifiers: Diabetic foot ulcer location: heel Laterality: left Non-pressure ulcer stage: unspecified non-pressure ulcer stage Qualified Code(s): E11.621 - Type 2 diabetes mellitus with foot ulcer; L97.429 - Non-pressure chronic ulcer of left heel and midfoot with unspecified severity (4) NSTEMI (non-ST elevated myocardial infarction) Current Visit: Yes Status: Acute (5) Obesity Current Visit: Yes Status: Acute Qualifiers: Obesity type: due to excess calories Obesity classification: unspecified obesity classification (6) DM type 2 (diabetes mellitus, type 2) Current Visit: Yes Status: Acute - Plan Physical Exam General: Alert, In no apparent distress HEENT: Mucous membr. moist/pink. Neck: Supple, Without JVD. Cardiovascular: Normal S1 S2, no murmur Respiratory: Bilateral diminished breath sounds, clear to auscultation bilaterally. Gastrointestinal: Normal bowel sounds, No tenderness. Musculoskeletal: No tenderness Integumentary: Foot/heel ulcer Neurological: Normal speech, Normal strength at 5/5 x4 extr, Normal affect. Plan: Continue IV Lasix. Echocardiogram showing mildly reduced EF of 45%. Continue full dose Lovenox for 1 more day to complete 72 hours of treatment for NSTEMI. Continue aspirin and Plavix. Cardiology to follow. Seen by pulmonaryDr. Ordaz. Patient may have cardiac catheterization on Thursday. BiPAP as needed Wean oxygen to room air as tolerated. Monitor intake and output. Wound care consult for heel ulcer. Insulin sliding scale for glucose management. Uninsured.
[2021-08-10 16:33] LABS: Urine Appearance Clear (Clear); Urine Blood Negative (Negative); Urine Color Yellow (Yellow); Urine Glucose 3+ (Negative); Urine Protein Trace (Negative); Urine pH 6.5 (5.0-7.0)
[2021-08-10 16:35] LABS: Urine Microscopic Reflex NO UMIC
[2021-08-10 16:59] LABS: Urine Bilirubin NEGATIVE (Negative)
[2021-08-10] MEDS ORDERED: TRAMADOL HCL 50 MG TAB PO ONE (20:57)
[2021-08-10] MEDS: ATORVASTATIN 40 MG TAB PO SCH (21:03)
[2021-08-10] MEDS: ACETAMINOPHEN 500 MG TAB PO PRN (23:25)
[2021-08-11] MEDS: METOPROLOL XL 25 MG TAB PO SCH ×2 (05:16→16:37)
[2021-08-11] MEDS: ASPIRIN EC 81 MG TAB PO SCH (08:27)
[2021-08-11] MEDS: CLOPIDOGREL 75 MG TABLET PO SCH (08:28)
[2021-08-11] MEDS: JUVEN PACKET PO SCH ×4 (08:28→20:24)
[2021-08-11] MEDS: FUROSEMIDE 40 MG/4 ML VIAL IV SCH (08:28)
[2021-08-11] MEDS: Enoxaparin 120 MG/0.8 ML SYR SQ SCH (08:28)
[2021-08-11] MEDS: INSULIN -REGULAR HUMAN 50 UNIT/0.5 ML ML SQ SCH ×4 (08:29→20:17)
--- NOTE | 2021-08-11 12:04 | P.PN ---
Subjective Date of Service: 08/11/21 Chief Complaint: NSTEMI, SHOB, foot ulcer Patient reports chills He became hypoxic last night and was requiring more oxygen Physical Examination - Vital Signs Temperature: 96.7 F Blood Pressure: 124/82 Pulse: 98 Respirations: 16 Pulse Ox (%): 98 Assessment And Plan - Current Problems (Diagnosis) (1) Acute diastolic heart failure Current Visit: Yes Status: Acute (2) Acute respiratory failure with hypoxia Current Visit: Yes Status: Acute (3) Diabetic foot ulcer associated with type 2 diabetes mellitus Current Visit: Yes Status: Acute Qualifiers: Diabetic foot ulcer location: heel Laterality: left Non-pressure ulcer stage: unspecified non-pressure ulcer stage Qualified Code(s): E11.621 - Type 2 diabetes mellitus with foot ulcer; L97.429 - Non-pressure chronic ulcer of left heel and midfoot with unspecified severity (4) NSTEMI (non-ST elevated myocardial infarction) Current Visit: Yes Status: Acute (5) Obesity Current Visit: Yes Status: Acute Qualifiers: Obesity type: due to excess calories Obesity classification: unspecified obesity classification (6) DM type 2 (diabetes mellitus, type 2) Current Visit: Yes Status: Acute - Plan Physical Exam General: Alert, In no apparent distress HEENT: Mucous membr. moist/pink. Neck: Supple, Without JVD. Cardiovascular: Normal S1 S2, no murmur Respiratory: Bilateral diminished breath sounds, clear to auscultation bilaterally. Gastrointestinal: Normal bowel sounds, No tenderness. Musculoskeletal: No tenderness Integumentary: Foot/heel ulcer Neurological: Normal speech, Normal strength at 5/5 x4 extr, Normal affect. Plan: Continue IV Lasix. Echocardiogram showing mildly reduced EF of 45%. Status post full dose Lovenox for NSTEMI. Continue aspirin and Plavix. Cardiology to follow. Seen by pulmonaryDr. Ordaz. Patient may have cardiac catheterization on Thursday. Repeat chest x-ray Wean oxygen to room air as tolerated. Monitor intake and output. Wound care consult for heel ulcer. Insulin sliding scale for glucose management. Uninsured.
--- NOTE | 2021-08-11 13:57 | RAD REPORT ---
EXAM DESCRIPTION: RAD - Chest Single View - 08/11/2021 1:49 pm CLINICAL HISTORY: Hypoxia COMPARISON: Chest Single View dated 08/08/2021; Chest Single View dated 12/14/2019 FINDINGS: Lines: None. Lungs: Widespread pulmonary opacities bilaterally . Pleural: No significant pleural effusions or pneumothorax. Cardiac: Cardiomegaly. Bones: No acute fractures. Other: IMPRESSION: Widespread pulmonary opacities favored to represent pulmonary edema. Pneumonia less like ly but within the differential.
[2021-08-11] MEDS: ENOXAPARIN 40 MG/0.4 ML SQ SCH (16:38)
[2021-08-11] MEDS: ATORVASTATIN 40 MG TAB PO SCH (20:18)
[2021-08-11] MEDS: MORPHINE 2 MG/ML SYR IV PRN (20:24)
[2021-08-12 04:12] LABS: Absolute Lymphocytes (CBC) 1.8 K/uL (0.7-4.9); Hematocrit 33.4 % (39.6-49.0); Lymphocytes % 21.4 % (15.3-44.8); MPV 8.5 fL (7.6-11.3)
[2021-08-12 04:16] LABS: BUN Blood Urea Nitrogen 15 mg/dL (7-18); Bicarbonate 27 mmol/L (21-32); Glucose Level 197 mg/dL (74-106); Potassium 3.2 mmol/L (3.5-5.1); Sodium Level 137 mmol/L (136-145)
[2021-08-12] MEDS: METOPROLOL XL 25 MG TAB PO SCH ×2 (05:33→17:29)
[2021-08-12] MEDS ORDERED: LIDOCAINE 1% 20 ML MDV ONE (06:45)
[2021-08-12] MEDS ORDERED: HEPA 1000U/500MLS 1,000 UNIT/500 ML BAG IV ONE (06:45)
[2021-08-12] MEDS ORDERED: NA CHLORIDE 0.9% 500 ML ONE (07:15)
[2021-08-12] MEDS ORDERED: MIDAZOLAM HCL 2 MG/2 ML INJ ONE ×2 (07:16→07:33)
[2021-08-12] MEDS ORDERED: FENTANYL CITR 100 MCG/2 ML ONE (07:16)
[2021-08-12] MEDS ORDERED: NA CHLORIDE 0.9% 0 ML ONE (07:17)
[2021-08-12] MEDS ORDERED: NITROGLYCERIN 100 MCG/ML SYR (for cath lab use only) IV ONE (07:17)
[2021-08-12] MEDS ORDERED: ATROPINE SULF 1 MG/10 ML SYR IV ONE (07:17)
[2021-08-12] MEDS ORDERED: NITROGLYCERIN/D5W 25 MG/250 ML BTL IV ONE (07:17)
[2021-08-12] MEDS ORDERED: NA CHLORIDE 0.9% 50 ML ONE (07:25)
[2021-08-12] MEDS: INSULIN -REGULAR HUMAN 50 UNIT/0.5 ML ML SQ SCH ×4 (07:30→20:38)
[2021-08-12] MEDS: ASPIRIN EC 81 MG TAB PO SCH (09:00)
[2021-08-12] MEDS: JUVEN PACKET PO SCH ×2 (09:00→20:38)
[2021-08-12] MEDS: FUROSEMIDE 40 MG/4 ML VIAL IV SCH (09:00)
[2021-08-12] MEDS: CLOPIDOGREL 75 MG TABLET PO SCH (09:00)
[2021-08-12] MEDS: MORPHINE 2 MG/ML SYR IV PRN ×2 (10:58→23:32)
[2021-08-12] MEDS ORDERED: ACETAMINOPHEN 325 MG TABLET PO PRN (11:00)
[2021-08-12] MEDS ORDERED: NITROGLYCERIN 0.4 MG/TAB SL PRN (11:00)
[2021-08-12] MEDS ORDERED: NA CHLORIDE 0.9% 1,000 ML IV SCH (11:00)
[2021-08-12] MEDS: ENOXAPARIN 40 MG/0.4 ML SQ SCH (17:00)
--- NOTE | 2021-08-12 18:17 | P.PN ---
Subjective Date of Service: 08/12/21 Chief Complaint: NSTEMI, SHOB, foot ulcer Patient has no complaint today His oxygen saturation is stable on room air Status post cardiac catheterization today. Physical Examination - Vital Signs Temperature: 98.1 F Blood Pressure: 117/72 Pulse: 84 Respirations: 20 Pulse Ox (%): 95 Assessment And Plan - Current Problems (Diagnosis) (1) Acute diastolic heart failure Current Visit: Yes Status: Acute (2) Acute respiratory failure with hypoxia Current Visit: Yes Status: Acute (3) Diabetic foot ulcer associated with type 2 diabetes mellitus Current Visit: Yes Status: Acute Qualifiers: Diabetic foot ulcer location: heel Laterality: left Non-pressure ulcer stage: unspecified non-pressure ulcer stage Qualified Code(s): E11.621 - Type 2 diabetes mellitus with foot ulcer; L97.429 - Non-pressure chronic ulcer of left heel and midfoot with unspecified severity (4) NSTEMI (non-ST elevated myocardial infarction) Current Visit: Yes Status: Acute (5) Obesity Current Visit: Yes Status: Acute Qualifiers: Obesity type: due to excess calories Obesity classification: unspecified obesity classification (6) DM type 2 (diabetes mellitus, type 2) Current Visit: Yes Status: Acute - Plan Physical Exam General: Alert, In no apparent distress HEENT: Mucous membr. moist/pink. Neck: Supple, Without JVD. Cardiovascular: Normal S1 S2, no murmur Respiratory: Bilateral diminished breath sounds, clear to auscultation bilaterally. Gastrointestinal: Normal bowel sounds, No tenderness. Musculoskeletal: No tenderness Integumentary: Foot/heel ulcer Neurological: Normal speech, Normal strength at 5/5 x4 extr, Normal affect. Plan: Cardiac catheterization records multiple coronary artery occlusions. Dr. Marrufo recommended transfer to [facility] for CABG. I spoke to the cardiothoracic surgeon-Dr. Chavez who stated patient will be sched uled CABG 1 week after his last dose of Plavix which was yesterday. Dr. Marrufo recommend inpatient monitoring until CABG due to critical LAD stenosis Continue IV Lasix. Echocardiogram showing mildly reduced EF of 45%. Status post full dose Lovenox for NSTEMI. Continue aspirin. Plavix discontinued Cardiology to follow. Seen by pulmonaryDr. Ordaz. Patient is currently tolerating room air. Monitor intake and output. Wound care input appreciated. Wound care with [facility]. Insulin sliding scale for glucose management. Uninsured.
--- NOTE | 2021-08-12 18:25 | OP ---
Date of Procedure: 08/12/2021 Surgeon: Chava Marrufo MD Neuro Psych Sales Specialist: Ms. Hui Hernandez. Angiography in the groin was normal. [employer] was used to close the case. Indication: Brought to the labor relations consultant on 08/12/2021 because of non-STEMI. Procedure In Detail: In the labor relations consultant, he was prepped and draped in the routine sterile fashion. He was given Versed and fentanyl for sedation. A 6-Italian sheath was introduced in the right common fem oral artery successfully using the Seldinger technique and 10 cc of Xylocaine. The Chalo catheters left and right were used to cannulate the left main and right main respectively. He had a 60% left main, 90% mid LAD with collaterals to the PDA. He had a 90% circumflex, which was dominant. He had 100% RCA, which was dominant, large vessel. Pigtail catheter was introduced in the left ventricle. Ejection fraction was 40% with moderate global hypokinesis. End-diastolic pressure was 17. The jason ent tolerated the procedure well. There were no complications. Blood Loss: 5 cc. Anesthesia: Total conscious sedation was 45 minutes. Postoperative Diagnosis: Severe coronary artery disease. Plan: For CABG. we will transfer to [facility] for that regard. DOROTEO/JOSE Voice ID: [id number] Report ID: [id number]
[2021-08-12] MEDS: ATORVASTATIN 40 MG TAB PO SCH (20:38)
[2021-08-13 04:10] LABS: Absolute Lymphocytes (CBC) 1.9 K/uL (0.7-4.9); Hematocrit 35.5 % (39.6-49.0); Lymphocytes % 21.4 % (15.3-44.8); MPV 8.2 fL (7.6-11.3); RBC Red Blood Cell Count 4.12 M/uL (4.33-5.43)
[2021-08-13 04:18] LABS: BUN Blood Urea Nitrogen 12 mg/dL (7-18); Bicarbonate 30 mmol/L (21-32); Glucose Level 258 mg/dL (74-106); Potassium 3.5 mmol/L (3.5-5.1); Sodium Level 137 mmol/L (136-145)
[2021-08-13] MEDS ORDERED: POTASSIUM CL SA 10 MEQ TAB PO ONE (04:21)
[2021-08-13] MEDS: METOPROLOL XL 25 MG TAB PO SCH ×2 (04:59→17:27)
[2021-08-13] MEDS: MORPHINE 2 MG/ML SYR IV PRN ×3 (05:39→22:16)
--- NOTE | 2021-08-13 06:35 | P.PN ---
Date of Service: 08/13/21 Subjective: continues with mild chest discomfort continues with shortness of breath, generalized aches no new symptoms, no nausea/vomiting, no diarrhea ROS: 10 point ROS as noted above, otherwise negative Physical exam GEN: Alert, oriented, NAD HEENT: Normal conjunctiva, sclera anicteric CV: Regular rate and rhythm, no edema Pulm: Non-labored respirations on room air ABD: Soft, nontender, nondistended Integumentary: No rashes Neuro: Normal speech, normal affect Problem List NSTEMI Acute hypoxemic respiratory failure secondary to acute diastolic CHF Diabetic foot ulcer DM2, non-insulin dependent Obesity cardiac cath with multiple occlusions. Recommended to transfer to [facility] for CABG. Patient scheduled for CABG 1 week after last dose of Plavix - which was Thursday (08/11) Cardiology recommends continued inpatient monitoring until CABG done due to critical LAD stenosis continue lasix, continue lovenox 40mg daily, aspirin Pulmonology following as well continue wound care continue insulin sliding scale, adjust as needed for better control platelet function assay ordered per request of Dr. Denton Time Spent Managing Pts Care (In Minutes): 35
[2021-08-13] MEDS: MEDIHONEY 44 ML TOPICAL TUBE TOP SCH (08:26)
[2021-08-13] MEDS: JUVEN PACKET PO SCH ×2 (08:27→21:00)
[2021-08-13] MEDS: ASPIRIN EC 81 MG TAB PO SCH (08:27)
[2021-08-13] MEDS: INSULIN -REGULAR HUMAN 50 UNIT/0.5 ML ML SQ SCH ×4 (08:27→22:18)
[2021-08-13 15:37] LABS: COL/EPI 129 SECONDS (80-184)
[2021-08-13 15:38] LABS: COL/ADP 60 SECONDS (56-102)
[2021-08-13] MEDS: ENOXAPARIN 40 MG/0.4 ML SQ SCH (16:24)
[2021-08-13] MEDS: ATORVASTATIN 40 MG TAB PO SCH (22:17)
[2021-08-14 04:46] LABS: BUN Blood Urea Nitrogen 14 mg/dL (7-18); Bicarbonate 29 mmol/L (21-32); Glucose Level 286 mg/dL (74-106); Potassium 3.8 mmol/L (3.5-5.1); Sodium Level 137 mmol/L (136-145)
[2021-08-14] MEDS: METOPROLOL XL 25 MG TAB PO SCH ×2 (06:36→17:13)
--- NOTE | 2021-08-14 06:39 | P.PN ---
Date of Service: 08/14/21 Subjective: still short of breath, mild chest discomfort no new symptoms ROS: 10 point ROS as noted above, otherwise negative Physical exam GEN: Alert, oriented HEENT: Normal conjunctiva, sclera anicteric CV: Regular rate and rhythm, no edema Pulm: mild-labored respirations on 2L NC ABD: Soft, nontender, nondistended Integumentary: No rashes Neuro: Normal speech, normal affect Problem List NSTEMI Acute hypoxemic respiratory failure secondary to acute diastolic CHF Diabetic foot ulcer DM2, non-insulin dependent Obesity cardiac cath with multiple occlusions. Recommended to transfer to [facility] for CABG. Patient scheduled for CABG 1 week after last dose of Plavix - which was Thursday (08/11) Cardiology recommends continued inpatient monitoring until CABG done due to critical LAD Stenosis continue lasix, continue lovenox 40mg daily, aspirin; discussed with Cardiology Pulmonology following as well continue wound care continue insulin sliding scale, adjust as needed for better control platelet function assay ordered per request of Dr. Denton Dispo: transfer to [facility] when ready Time Spent Managing Pts Care (In Minutes): 35
--- NOTE | 2021-08-14 07:29 | RAD REPORT ---
EXAM DESCRIPTION: RAD - Chest Single View - 08/14/2021 6:56 am CLINICAL HISTORY: f/u pulm opacities COMPARISON: Chest Single View dated 08/11/2021; Chest Single View dated 08/08/2021; Chest Single View dated 12/14/2019 FINDINGS: Lines: None. Lungs: Severe widespread bilateral airspace disease which is little changed from prior. Pleural: No significant pleural effusions or pneumothorax. Cardiac: The heart size is within normal limits. Bones: No acute fractures. Other: IMPRESSION: Severe widespread airspace disease without significant interval change compared with .
[2021-08-14] MEDS ORDERED: INSULIN GLARGINE 100 UNIT/ML SQ SCH (09:00)
[2021-08-14] MEDS: JUVEN PACKET PO SCH ×2 (09:00→20:29)
[2021-08-14] MEDS ORDERED: POTASSIUM CL SA 10 MEQ TAB PO ONE (09:00)
[2021-08-14] MEDS: ASPIRIN EC 81 MG TAB PO SCH (09:27)
[2021-08-14] MEDS: INSULIN -REGULAR HUMAN 50 UNIT/0.5 ML ML SQ SCH ×4 (09:27→20:28)
[2021-08-14] MEDS: MEDIHONEY 44 ML TOPICAL TUBE TOP SCH (09:28)
[2021-08-14] MEDS: MORPHINE 2 MG/ML SYR IV PRN (11:47)
[2021-08-14] MEDS: FUROSEMIDE 40 MG/4 ML VIAL IV SCH (12:38)
[2021-08-14] MEDS: ENOXAPARIN 40 MG/0.4 ML SQ SCH (17:12)
[2021-08-14] MEDS: ATORVASTATIN 40 MG TAB PO SCH (20:28)
[2021-08-15] MEDS: MORPHINE 2 MG/ML SYR IV PRN (00:13)
[2021-08-15] MEDS: METOPROLOL XL 25 MG TAB PO SCH ×2 (05:46→16:34)
[2021-08-15 06:07] LABS: Hematocrit 35.9 % (39.6-49.0); MPV 8.3 fL (7.6-11.3)
--- NOTE | 2021-08-15 06:26 | P.PN ---
Date of Service: 08/15/21 Subjective: improving, breathing more comfortably slight chest discomfort remains no new symptoms ROS: 10 point ROS as noted above, otherwise negative Physical exam GEN: Alert, oriented HEENT: Normal conjunctiva, sclera anicteric CV: Regular rate and rhythm, no edema Pulm: non-labored respirations on 2L NC ABD: Soft, nontender, nondistended Problem List NSTEMI Acute hypoxemic respiratory failure secondary to acute diastolic CHF Diabetic foot ulcer DM2, non-insulin dependent Obesity cardiac cath with multiple occlusions. Recommended to transfer to [facility] for CABG. Patient scheduled for CABG 1 week after last dose of Plavix - which was Thursday (08/11) Cardiology recommends continued inpatient monitoring until CABG done due to critical LAD Stenosis continue lovenox 40mg daily, aspirin; discussed with Cardiology continue lasix Pulmonology following as well continue wound care continue insulin sliding scale, adjust as needed for better control platelet function assay ordered per request of Dr. Denton, discussed normal results Dispo: transfer to [facility] when ready, anticipate thursday Time Spent Managing Pts Care (In Minutes): 35
[2021-08-15 06:39] LABS: BUN Blood Urea Nitrogen 9 mg/dL (7-18); Bicarbonate 29 mmol/L (21-32); Glucose Level 150 mg/dL (74-106); Magnesium 1.8 mg/dL (1.8-2.4); Potassium 3.7 mmol/L (3.5-5.1); Sodium Level 138 mmol/L (136-145)
[2021-08-15] MEDS ORDERED: MAGNESIUM SULFATE 1 gm IVPB 1 GM/100 ML BAG IV ONE (07:00)
[2021-08-15] MEDS: INSULIN -REGULAR HUMAN 50 UNIT/0.5 ML ML SQ SCH ×4 (07:30→21:57)
[2021-08-15] MEDS: FUROSEMIDE 40 MG/4 ML VIAL IV SCH (08:35)
[2021-08-15] MEDS: MEDIHONEY 44 ML TOPICAL TUBE TOP SCH (08:36)
[2021-08-15] MEDS: ASPIRIN EC 81 MG TAB PO SCH (08:36)
[2021-08-15] MEDS: JUVEN PACKET PO SCH ×2 (08:36→21:00)
[2021-08-15] MEDS ORDERED: INSULIN GLARGINE 100 UNIT/ML SQ SCH (09:00)
[2021-08-15] MEDS ORDERED: POTASSIUM CL SA 10 MEQ TAB PO ONE (09:00)
--- NOTE | 2021-08-15 12:55 | P.PN ---
Subjective Date of Service: 08/15/21 Chief Complaint: Shortness of breath Patient's condition deteriorated yesterday due to more shortness of breath possible pulmonary edema is much better on Lasix today Review of Systems General: Weakness Respiratory: Dry Physical Examination - Vital Signs Temperature: 97.0 F Blood Pressure: 113/76 Pulse: 76 Respirations: 16 Pulse Ox (%): 93 - Physical Exam General: Alert, Oriented x3 Respiratory: Crackles/rales Cardiovascular: No edema, Regular rate/rhythm Assessment And Plan - Current Problems (Diagnosis) (1) Respiratory failure Current Visit: Yes Status: Acute Qualifiers: Chronicity: acute (2) Coronary artery disease Current Visit: Yes Status: Acute Qualifiers: Coronary Disease-Associated Artery/Lesion type: unspecified vessel or lesion type - Plan Patient developed congestive heart failure yesterday is much better on IV diuretics still hypoxic triple-vessel coronary artery disease scheduled to be transferred to [place] for a bypass add spironolactone mold changer to p.o. Lasix signs are stable mildly hypoxic repeat chest x-ray white count is normal no evidence of sepsis
[2021-08-15] MEDS: ENOXAPARIN 40 MG/0.4 ML SQ SCH (16:34)
[2021-08-15] MEDS ORDERED: TRAMADOL HCL 50 MG TAB PO ONE (20:43)
[2021-08-15 20:47] VITALS: BP 97/56; TEMP 97.9
[2021-08-15] MEDS ORDERED: SPIRONOLACTONE 25 MG TABLET PO SCH (21:00)
--- NOTE | 2021-08-15 21:03 | P.DS ---
Admission Date: 08/08/21 Discharge Date: 08/15/21 Disposition: TRANSFER TO [facility] Discharge Condition: FAIR Reason for Admission: Shortness of breath Consultations: Cardiology- Dr. Marrufo Pulmonary- Dr. Ordaz Procedures: chest x-ray 08/14/2021 FINDINGS: Lines: None. Lungs: Severe widespread bilateral airspace disease which is little changed from prior. Pleural: No significant pleural effusions or pneumothorax. Cardiac: The heart size is within normal limits. Bones: No acute fractures. Other: IMPRESSION: Severe widespread airspace disease without significant interval change compared with 08/11/2021. On Atrovent and, thank you is the -14 Covid some days discharge summary right now he is in ago due to Cath report 08/12/2021 Procedure In Detail: In the boat laborer, he was prepped and draped in the routine sterile fashion. He was given Versed and fentanyl for sedation. A 6-Upper Sorbian sheath was introduced in the right common femoral artery successfully using the Seldinger technique and 10 cc of Xylocaine. The Chalo catheters left and right were used to cannulate the left main and right main respectively. He had a 60% left main, 90% mid LAD with collaterals to the PDA. He had a 90% c ircumflex, which was dominant. He had 100% RCA, which was dominant, large vessel. Pigtail catheter was introduced in the left ventricle. Ejection fraction was 40% with moderate global hypokinesis. End-diastolic pressure was 17. The patient tolerated the procedure well. There were no complications. Blood Loss: 5 cc. Anesthesia: Total conscious sedation was 45 minutes. Postoperative Diagnosis: Severe coronary artery disease. Plan: For CABG. we will transfer to [place] for that regard. Carotid artery ultrasound 08/08/2021 FINDINGS: Normal high resistance waveforms are noted in both external carotid arteries. The common carotid arteries and internal carotid arteries show normal low resistance waveforms. Plaquing changes are present in the right internal carotid artery. Velocity reaches 155 cm/second. The right-side ICA/CCA ratio 1.88. No significant plaquing in the left internal or common carotid arteries. Left-side ICA/CCA ratio is 1.37 in value. No dissection is seen. No other significant plaquing changes identifiable. Antegrade flow seen in both vertebral arteries. Velocity values and ratios were recorded and are retained in the patient's imaging records. IMPRESSION: Right internal carotid artery plaquing changes are present. Based on visual inspection and velocity values, estimated stenosis is 50%. No significant stenosis of the left carotid vasculature. Extremity venous 3 09/18/2021 FINDINGS: Normal compressibility, flow augmentation, phasic flow and spontaneous flow are identified in the left and right lower extremity common femoral, superficial femoral, popliteal and posterior tibial veins. No intraluminal filling defects seen. IMPRESSION: No DVT in either lower extremity. CT chest abdomen pelvis 08/08/2021 FINDINGS: CHEST: Lungs: Bilateral lower lobe linear atelectasis. No consolidation or groundglass opacities to suggest pneumonia. Pleural space: No pleural effusion or pneumothorax. Heart: Unremarkable. No cardiomegaly. No significant pericardial effusion. No significant coronary artery calcifications. Mediastinum: No pneumomediastinum. ABDOMEN: Liver: Borderline hepatic enlargement. Gallbladder and bile ducts: No calcified stones in the gallbladder. No ductal dilation. Pancreas: Unremarkable. No ductal dilation. Spleen: Unremarkable. No splenomegaly. Adrenals: Unremarkable. No mass. Kidneys and ureters: Punctate left nephrolithiasis. The kidneys are otherwise unremarkable. No hydronephrosis or ureter stone. Stomach and bowel: Elongated sigmoid colon. No bowel dilatation or obstruction. No bowel wall thickening. PELVIS: Appendix: The appendix is not visualized. No pericecal inflammation to suggest acute appendicitis. Bladder: Unremarkable. No stones. Reproductive: Unremarkable as visualized. CHEST, ABDOMEN and PELVIS: Intraperitoneal space: Unremarkable. No significant fluid collection. No free air. Bones/joints: No thoracic compression fracture. No acute rib fracture visualized. No lumbar spine fracture. Degenerative disc disease L4-5. Disc osteophyte complexes at L4-5 and L5-S1 with moderate central canal stenosis. No acute fracture in the pelvis or proximal femora. No hip dislocation. Soft tissues: Unremarkable. Vasculature: Unremarkable. No aortic aneurysm. Lymph nodes: Unremarkable. No pathologically enlarged lymph nodes. IMPRESSION: 1. Bilateral lower lobe linear atelectasis. 2. Punctate left nephrolithiasis. 3. Additional non-emergent findings as above. Problem list NSTEMI Acute hypoxemic respiratory failure secondary to acute diastolic CHF Diabetic foot ulcer DM2, non-insulin dependent Obesity Brief History of Present Illness: H&P Patient is a 56-year-old male with type 2 [id number], hypertension, hyperlipidemia who presented to the ED with complaints of cough, shortness of breath, and flulike symptoms that began about 3 days ago. Upon arrival he flagged for sepsis due to his tachycardia and tachypnea. Labs were found to be significant for WBC 13.7, hemoglobin 13.3, sodium 130, glucose 385, troponin high-sensitivity 391, procalcitonin 0.[address] abnormalities[address] chest without contrast showed diffuse interstitial opacities bilaterally suggestive of interstitial edema or pneumonia. An ABG was donepH 7.43, PCO2 34.2, PO2 58.6. Patient was also noted to have a diabetic foot ulcer on his left heel positive for decreased range of motion, erythema, pain, swelling. An EJ was inserted and patient was given Rocephin, 500 mL bolus, 324 mg of aspirin, 10 units of insulin, 100 mg of Lovenox, Pepcid, Zithromax, vancomycin. CT chest abdomen pelvis ordered and is pending. ED provider wishes to admit patient to ICU for continued treatment of several conditions. Hospital Course: NSTEMI Acute hypoxemic respiratory failure secondary to acute diastolic CHF Diabetic foot ulcer DM2, non-insulin dependent Obesity cardiac cath with multiple occlusions. Recommended to transfer to [facility] for CABG. Patient scheduled for CABG 1 week after last dose of Plavix - which was Thursday (08/11) Cardiology recommends continued inpatient monitoring until CABG done due to critical LAD Stenosis continue lovenox 40mg daily, aspirin; discussed with Cardiology continue lasix Pulmonology following as well continue wound care continue insulin sliding scale, adjust as needed for better control platelet function assay ordered per request of Dr. Denton, discussed normal results Patient was accepted to [facility] this evening. Will be transferred for CABG Vital Signs/Physical Exam: Temp Pulse Resp BP Pulse Ox 97.9 F 83 18 97/56 L 97 08/15/21 20:00 08/15/21 20:00 08/15/21 20:00 08/15/21 20:00 08/15/21 20:00 General: Alert, In no apparent distress HEENT: Atraumatic, PERRLA, EOMI Neck: Supple, JVD not distended Respiratory: Clear to auscultation bilaterally, Normal air movement Cardiovascular: Regular rate/rhythm, Normal S1 S2 Gastrointestinal: Normal bowel sounds, No tenderness Musculoskeletal: No tenderness Integumentary: No rashes Neurological: Normal speech, Normal tone, Normal affect Lymphatics: No axilla or inguinal lymphadenopathy Laboratory Data at Discharge: WBC 8.9 K/uL (4.3-10.9) 08/15/21 05:41 Hgb 12.1 g/dL (13.6-17.9) L 08/15/21 05:41 Hct 35.9 % (39.6-49.0) L 08/15/21 05:41 Plt Count 363 K/uL (152-406) 08/15/21 05:41 Sodium 138 mmol/L (136-145) 08/15/21 05:41 Potassium 3.7 mmol/L (3.5-5.1) 08/15/21 05:41 BUN 9 mg/dL (7-18) 08/15/21 05:41 Creatinine 0.64 mg/dL (0.55-1.3) 08/15/21 05:41 Glucose 150 mg/dL (74-106) H 08/15/21 05:41 Phosphorus 1.7 mg/dL (2.5-4.9) L 08/09/21 16:51 Magnesium 1.8 mg/dL (1.8-2.4) 08/15/21 05:41 Triglycerides 89 mg/dL (<150) 08/09/21 05:35 Cholesterol 136 mg/dL (<200) 08/09/21 05:35 HDL Cholesterol 41 mg/dL (40-60) 08/09/21 05:35 Cholesterol/HDL Ratio 3.32 08/09/21 05:35 Home Medications: Buspirone HCl [Buspar] 10 mg PO DAILY 08/08/21 Empagliflozin/Metformin HCl [Synjardy Xr 25-1,000 mg Tablet] 25 mg PO DAILY 08/08/21 Pioglitazone HCl [Actos] 45 mg PO DAILY 08/08/21 Diet: AHA Followup: Unknown,U [Primary Care Provider] - Time spent managing pt's care (in minutes): 25
[2021-08-15] MEDS: ATORVASTATIN 40 MG TAB PO SCH (21:56)
[2021-08-16 01:45] VITALS: O2SAT 97
[2021-08-16] MEDS ORDERED: FUROSEMIDE 40 MG TABLET PO SCH (09:00)
== END 2021-08-15 23:00 | disposition short-term general hospital (02) | DRG 871 ==
LOC: ER 01:06 → ERHOLD 03:50 → 2ND 19:13
PROVIDERS: ADMIT Internal Medicine; ATTEND Internal Medicine
PROC: 05HP33Z Insertion of Infusion Device into Right External Jugular Vein, Percutaneous Approach (ICD-10-PCS; 2021-08-08)
PROC: B201YZZ Plain Radiography of Multiple Coronary Arteries using Other Contrast (ICD-10-PCS; principal; 2021-08-12)
PROC: 4A023N7 Measurement of Cardiac Sampling and Pressure, Left Heart, Percutaneous Approach (ICD-10-PCS; 2021-08-12)
DX: A41.9 Sepsis, unspecified organism (principal); I21.4 Non-ST elevation (NSTEMI) myocardial infarction; J96.01 Acute respiratory failure with hypoxia; I50.31 Acute diastolic (congestive) heart failure; L97.429 Non-pressure chronic ulcer of left heel and midfoot with unspecified severity; E66.01 Morbid (severe) obesity due to excess calories; Z68.32 Body mass index [BMI] 32.0-32.9, adult; E11.9 Type 2 diabetes mellitus without complications; F43.10 Post-traumatic stress disorder, unspecified; E11.621 Type 2 diabetes mellitus with foot ulcer; I11.0 Hypertensive heart disease with heart failure; I25.10 Atherosclerotic heart disease of native coronary artery without angina pectoris; E78.5 Hyperlipidemia, unspecified; Z88.0 Allergy status to penicillin; Z20.822 Contact with and (suspected) exposure to COVID-19
CPT/HCPCS: 0240U; 36415; 71045; 71250; 74176; 80048; 80061; 81003; 82550; 82553; 82805; 82947; 83036; 83605; 83735; 83880; 84100; 84145; 84439; 84443; 84484; 85025; 85027; 85576; 87040; 90471; 90714; 93005; 93306; 93458; 93880; 93970; 94660; 96372; 99251; 99285; C1893; J0456; J0583; J1644; J1650; J1940; J2250; J2270; J2405; J3010; J3370; J3475; J7030; J7040; J7050; U0003